=== PATIENT | female | born 1960 | race Caucasian/White ===

== ENCOUNTER 2016-04-28 22:19 | Emergency (ER) | payer OTHER, BC ==
[2016-04-28 22:32] VITALS: BP 139/85
[2016-04-28] MEDS ORDERED: Metoclopramide 10 MG/2 ML SDV IVPUSH ONE (22:44)
--- NOTE | 2016-04-28 22:44 | EDM.PDOC ---
ED HPI GI/ABDOMINAL - General Chief Complaint: Gastrointestinal Problem Stated Complaint: CHEMO PT VOMITING/DIARRHEA Time Seen by Provider: 04/28/16 22:43 Source of Information: Reports: Patient History Limitations: Reports: No limitations - History of Present Illness INITIAL COMMENTS - FREE TEXT/NARRATIVE: 56-year-old female presents to the ED in the accompaniment of her . They report they referred her for the weekend. They were eating out. They felt they both had the same meal at a [place] restaurant except that she may have had a little bit of different form of shrimp dish. Approximately 1930 hours she started developing nausea followed by severe diarrhea. Just today she's vomited about 7 times of undigested food and diarrhea is large volume and watery. No blood noted in either emesis or diarrhea. Associated upper abdominal discomfort and mild cramps better since last emesis. History is complicated by the fact that she has multiple myeloma with the initial diagnosis June 2007. Had chemotherapy and then treated with stem cell transplant in 10 repeat stem cell transplant in 2011. Recurrence in his September 24October of this year and is on chemotherapy at this time. Last chemotherapy was approximately 3 weeks ago. She tolerated it very well. She feels chilled but has no fever. Previous abdominal surgery is cholecystectomy.patient did take 2 Compazine tablets at home but she felt she vomited them back up within about 5 minutes. Symptom Onset Date: 04/28/16 Symptom Onset Time: 19:30 Timing/Duration: Reports: Hour(s):, Sudden onset Location: other (generalized abdominal pain with associated cramping and pressure in epigastrium.) Quality: Reports: cramping, fullness Severity: severe Improves with: Reports: defecating, vomiting Context: Reports: bad/questionable food. 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) - Related Data Allergies/ADRs: Allergies Allergy/AdvReac Type Severity Reaction Status Date / Time ciprofloxacin [From Cipro] Allergy Arrhythmias Verified 05/26/15 20:11 ciprofloxacin HCl Allergy Arrhythmias Verified 05/26/15 20:11 [From Cipro] levofloxacin [From Levaquin] Allergy Arrhythmias Verified 04/28/16 22:34 Sulfa (Sulfonamide Allergy Rash Verified 04/28/16 22:34 Antibiotics) telithromycin [From Ketek] Allergy Anaphylactic Verified 04/28/16 22:34 Shock Home Meds: Home Meds Acyclovir 800 mg PO BID 05/26/15 [History] Cyanocobalamin (Vitamin B-12) [Vitamin B-12] 1,000 mcg INJECT ONETIME 05/26/15 [ History] Dexamethasone 8 mg PO ASDIRECTED 05/26/15 [History] Furosemide [Lasix] 40 mg PO DAILY PRN 05/26/15 [History] LORazepam 1 mg PO DAILY PRN 05/26/15 [History] Ondansetron HCl [Zofran] 8 mg PO DAILY PRN 05/26/15 [History] ALPRAZolam [Xanax] 1 mg PO DAILY 04/28/16 [History] Prochlorperazine Maleate [Compazine] 10 mg PO Q8H PRN 04/28/16 [History] Past Medical History Respiratory History: Reports: Asthma Other Oncologic History: multiple myloma initially diagnosed in 2007. Stem cell transplant 2009 and 2011. Recurrence in November of this year and has been on chemotherapy since that time.fairly chemotherapy is to be given once monthly and she is due for chemotherapy on this Friday every . - Past Surgical History GI Surgical History: Reports: Cholecystectomy Social & Family History - Tobacco Use Smoking Status *Q: Never Smoker - Recreational Drug Use Recreational Drug Use: No - Living Situation & Occupation Living situation: Reports: Occupation: disabled ED ROS GENERAL - Review of Systems Review Of Systems: See Below Constitutional: Reports: chills, malaise, weakness, fatigue, decreased appetite. Denies: weight loss HEENT: Reports: No symptoms Respiratory: Reports: no symptoms Cardiovascular: Reports: Dyspnea on exertion (on exertion at times.). Denies: Blood pressure problem Endocrine: Reports: fatigue GI/Abdominal: Reports: Abdominal pain (mostly in the epigastrium but does get some lower abdominal cramping pain as well with onset of this illness.), Diarrhea, Nausea, Vomiting. Denies: Hematemesis, Hematochezia : Reports: no symptoms Musculoskeletal: Reports: no symptoms Skin: Reports: no symptoms Neurological: Reports: dizziness ED EXAM, GI/ABD - Physical Exam Exam: See Below Exam Limited By: No limitations General Appearance: alert, WD/WN, moderate distress (vomiting when I walked in the room.) Eyes: bilateral: normal appearance (no jaundice) Throat/Mouth: Normal inspection, Normal lips, Normal teeth, Normal oropharynx Head: atraumatic, normocephalic Neck: normal inspection, supple, non-tender, full range of motion Respiratory/Chest: no respiratory distress, lungs clear, normal breath sounds, no accessory muscle use Cardiovascular: normal peripheral pulses, regular rate, rhythm, no edema, no gallop, no murmur GI/Abdominal: soft, no organomegaly, hyperactive bowel sounds, tenderness ( mostly in the epigastrium I think muscular due to vomiting.). No: hepatomegaly , splenomegaly Extremities: normal inspection, normal range of motion, non-tender, normal capillary refill, pedal edema Neurological: alert (mild edema around the ankles.), oriented, CN II-XII intact , normal cognition Psychiatric: normal affect, normal mood Skin Exam: Dry, Intact, Normal color, No rash, Cool Course - Vital Signs Last Recorded V/S: Last Vital Signs Temp 35.5 C 04/28/16 22:27 Pulse 97 04/28/16 22:27 Resp 16 04/28/16 22:27 BP 139/85 04/28/16 22:27 Pulse Ox 98 04/28/16 22:27 - Orders/Labs/Meds Orders: Active Orders 24 hr Category Date Time Status CULTURE STOOL + SHIGATOX [RM] Stat Lab 04/28/16 22:43 Uncollected WBC, STOOL [OP] Stat Lab 04/28/16 22:43 Uncollected Dextrose 5%-0.9% NaCl [Dextrose 5%-Normal Saline] 1,000 Med 04/28/16 22:45 Active ml IV ASDIRECTED Medication Orders Dextrose/Sodium Chloride (Dextrose 5%-Normal Saline) 1,000 mls @ 999 mls/hr IV ASDIRECTED ROQUE Last Admin: 04/28/16 23:11 Dose: 999 mls/hr Labs: Laboratory Tests 04/28/16 04/28/16 Range/Units 23:06 23:06 WBC 9.16 (3.98-10.04) K/mm3 RBC 5.07 (3.98-5.22) M/mm3 Hgb 14.2 (11.2-15.7) gm/L Hct 45.0 H (34.1-44.9) % MCV 88.8 (79.4-94.8) fl MCH 28.0 (25.6-32.2) pg MCHC 31.6 L (32.2-35.5) g/dl RDW Std Deviation 51.6 H (36.4-46.3) fL Plt Count 190 (182-369) K/mm3 MPV 9.3 L (9.4-12.3) fl Neutrophils % (Manual) 80 H (40-60) % Band Neutrophils % 0 (0-10) % Lymphocytes % (Manual) 9 L (20-40) % Atypical Lymphs % 0 % Monocytes % (Manual) 8 (2-10) % Eosinophils % (Manual) 3 (0.7-5.8) % Basophils % (Manual) 0 L (0.1-1.2) Toxic Granulation See note Platelet Estimate Adequate Plt Morphology Comment Normal RBC Morph Comment Normal Sodium 143 (136-145) mEq/L Potassium 3.8 (3.5-5.1) mEq/L Chloride 105 (98-107) mEq/L Carbon Dioxide 25 (21-32) mEq/L Anion Gap 16.8 H (5-15) BUN 12 (7-18) mg/dL Creatinine 0.7 (0.55-1.02) mg/dL Est Cr Clr Drug Dosing TNP Estimated GFR (MDRD) > 60 (>60) mL/min BUN/Creatinine Ratio 17.1 (14-18) Glucose 132 H (74-106) mg/dL Calcium 8.9 (8.5-10.1) mg/dL Total Bilirubin 0.3 (0.2-1.0) mg/dL AST 30 (15-37) U/L ALT 32 (14-59) U/L Alkaline Phosphatase 143 H (46-116) U/L C-Reactive Protein 3.1 H* (<1.0) mg/dL Total Protein 7.0 (6.4-8.2) g/dl Albumin 3.4 (3.4-5.0) g/dl Globulin 3.6 gm/dL Albumin/Globulin Ratio 0.9 L (1-2) Meds: Medications Generic Name Dose Route Start Last Admin Trade Name Ludy PRN Reason Stop Dose Admin Dextrose/Sodium Chloride 1,000 mls @ 999 mls/hr 04/28/16 22:45 04/28/16 23:11 Dextrose 5%-Normal Saline IV 999 mls/hr ASDIRECTED ROQUE Administration Discontinued Medications Generic Name Dose Route Start Last Admin Trade Name Ludy PRN Reason Stop Dose Admin Metoclopramide HCl 7.5 mg 04/28/16 22:44 04/28/16 23:07 Reglan IVPUSH 04/28/16 22:45 7.5 mg ONETIME ONE Administration - Radiology Interpretation Free Text/Narrative:: 56-year-old female presents to the ED with acute onset of nausea vomiting and diarrhea about 7:30 tonight. Started about the same time. Was eating out in 5 over the weekend. Possibility of foodborne illness exists with a toxin causing the antritis. Plan she has a history of multiple myeloma and therefore will have routine labs performed. IV will be D5 normal saline at open. Given Reglan 10 mg IV. At this time she feels she doesn't have much abdominal pain and doesn' t need any pain medication. If she Is to provide a stool sample while here we tested for white cells and culture. - Re-Assessments/Exams Free Text/Narrative Re-Assessment/Exam: 04/29/16 00:10 white count is back and is 9.16. Hemoglobin is 14.2 hematocrit 45.0. Platelet count is 190,000. Chemistry shows a sodium of 143 potassium of 3.8. Anion gap is mildly elevated at 16.8. Glucose 132 alkaline phosphatase days mildly elevated 143 CRP is 3.1. 04/29/16 00:39differential is back and shows 80% neutrophils no bands. She never was able to produce a stool sample while in the ED and therefore stool for culture and white cells will be canceled. Suspect strongly that current illness was but do to a foodborne toxin. She has Compazine tablets at home. Have advised her to take 10 mg at 4:00 this morning and again at 0930 hours this morning to prevent any further nausea vomiting. Clear fluid diet such as Gatorade Powerade until we know for sure it vomiting is stopped. Then to advance diet as tolerated with no dairy products or altitudes or grape juice until stools are formed back up. She will return to the hospital further vomiting occurs in spite of Compazine therapy at home. She is on Zofran ineffective in the past and also gives her quite a bad headache. Departure - Departure Time of Disposition: 00:36 Disposition: Home, Self-Care 01 Condition: fair Clinical Impression: Gastroenteritis Referrals: PCP,Unknown [Primary Care Provider] - Forms: ED Department Discharge Additional Instructions: evaluation in the emergency room tonight in regards to acute onset of nausea vomiting and diarrhea. Came on about the same time. No stools were produce labor in the emergency room. Lab work proved to be essentially normal with a total white count of 9.16 and hemoglobin of 14.2 platelets normal 190,000. Chemistry showed a little bit of volume depletion or dehydration. I am suspect that your current illness is foodborne in likely from a toxin eat within the last 12-24 hours.you're treated with a liter of IV fluids while in the ED and Reglan 10 mg IV to arrest nausea and vomiting. Treatment at home is to sit on Gatorade or Powerade ideally 5 or 6 ounces per hour for the next 12 hours until we know for sure that illnesses come to an end. Most toxin related illnesses better within 24 hours. Viral gastroenteritis vomiting usually is improved within 16-24 hours but the diarrhea can sometimes last a few more days. Suggest using your Compazine tablets 10 mg every 6 hours as needed for vomiting or nausea relief. I would suggest taking 2 tablets at 4:00 this morning and again at 09:30 hrs in the morning and then see what happens.clear fluid diet until no vomiting for 16 hours. When hungry advance to crackers. Then advanced to broth soup or turkey rice turkey noodle et cetera. Suggest no dairy products and no apple or grape juice until stools are formed back up. If vomiting occurs in spite of using Compazine return to the emergency room for further IV fluids and medication as needed. - My Orders Last 24 Hours: My Active Orders 04/28/16 22:43 CULTURE STOOL + SHIGATOX [RM] Stat WBC, STOOL [OP] Stat 04/28/16 22:45 Dextrose 5%-0.9% NaCl [Dextrose 5%-Normal Saline] 1,000 ml IV ASDIRECTED - Assessment/Plan Last 24 Hours: My Active Orders 04/28/16 22:43 CULTURE STOOL + SHIGATOX [RM] Stat WBC, STOOL [OP] Stat 04/28/16 22:45 Dextrose 5%-0.9% NaCl [Dextrose 5%-Normal Saline] 1,000 ml IV ASDIRECTED
[2016-04-28] MEDS ORDERED: Dextrose 5%-0.9% NaCl 1,000 ML IV SCH (22:45)
== END 2016-04-29 00:50 | disposition home or self-care (01) ==
LOC: JD.ED 22:19
DX: K52.9 Noninfective gastroenteritis and colitis, unspecified (principal); J45.909 Unspecified asthma, uncomplicated; Z88.1 Allergy status to other antibiotic agents; Z88.2 Allergy status to sulfonamides; Z90.49 Acquired absence of other specified parts of digestive tract
CPT/HCPCS: 36415; 80053; 85025; 86140; 96361; 96374; 99284; J2765; J7042

== ENCOUNTER 2016-06-30 10:25 | Emergency (ER) | payer OTHER, BC ==
[2016-06-30 10:41] VITALS: BP 124/85
--- NOTE | 2016-06-30 10:41 | EDM.PDOC ---
ED HPI GENERAL MEDICAL PROBLEM - General Chief Complaint: ENT Problem Stated Complaint: FEVER CHILLS PT CHEMO SORE THROAT Time Seen by Provider: 06/30/16 10:41 - History of Present Illness INITIAL COMMENTS - FREE TEXT/NARRATIVE: 56-year-old female presents emergency room with sore throat and congestion. She had chemotherapy on . Patient is treated for multiple myeloma she has had this for 8 years. She's on multiple rounds of chemotherapy she's had 2 stem cell transplants. It is unclear if she is a candidate for further stem cell transplants. This patient was thought to have active disease again this last October and has been on chemotherapy she generally tolerates this fairly well. After receiving her chemotherapy she was seen in the clinic for sore throat congestion was started on Augmentin. Flu swab at that time was unremarkable. Throat Pain Score (Numeric/FACES): 8 - Related Data Allergies Allergy/AdvReac Type Severity Reaction Status Date / Time ciprofloxacin [From Cipro] Allergy Arrhythmias Verified 05/26/15 20:11 ciprofloxacin HCl Allergy Arrhythmias Verified 05/26/15 20:11 [From Cipro] levofloxacin [From Levaquin] Allergy Arrhythmias Verified 04/28/16 22:34 Sulfa (Sulfonamide Allergy Rash Verified 04/28/16 22:34 Antibiotics) telithromycin [From Ketek] Allergy Anaphylactic Verified 04/28/16 22:34 Shock Home Meds: Home Meds Acyclovir 800 mg PO BID 05/26/15 [History] Cyanocobalamin (Vitamin B-12) [Vitamin B-12] 1,000 mcg INJECT Q30D 05/26/15 [ History] Dexamethasone 8 mg PO ASDIRECTED 05/26/15 [History] Furosemide [Lasix] 40 mg PO DAILY PRN 05/26/15 [History] LORazepam 1 mg PO DAILY PRN 05/26/15 [History] Ondansetron HCl [Zofran] 8 mg PO DAILY PRN 05/26/15 [History] Prochlorperazine Maleate [Compazine] 10 mg PO Q8H PRN 04/28/16 [History] Past Medical History HEENT History: Reports: Impaired vision Cardiovascular History: Reports: RI Other Cardiovascular History: Patient states she was told she's had an RI in the past secondary to chemotherapy Respiratory History: Reports: Asthma Gastrointestinal History: Reports: Diverticulosis 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 Stem cell transplant 2009 and 2011. Recurrence in November of this year and has been on chemotherapy since that time.fairly chemotherapy is to be given once monthly and she is due for chemotherapy on this Friday every . - Past Surgical History GI Surgical History: Reports: Cholecystectomy Social & Family History - Family History Family Medical History: Noncontributory - Tobacco Use Smoking Status *Q: Never Smoker Second Hand Smoke Exposure: No - Caffeine Use Caffeine Use: Reports: Coffee, Soda - Recreational Drug Use Recreational Drug Use: No - Living Situation & Occupation Living situation: Reports: Occupation: disabled ED ROS GENERAL - Review of Systems Review Of Systems: See Below Constitutional: Reports: fever, chills HEENT: Reports: Sinus problem, Throat pain, Other (Tightness pressure and congestion) Respiratory: Reports: Cough. Denies: Sputum Cardiovascular: Reports: No symptoms Endocrine: Reports: no symptoms GI/Abdominal: Reports: No symptoms : Reports: no symptoms Skin: Reports: no symptoms Neurological: Reports: No Symptoms Hematologic/Lymphatic: Reports: no symptoms ED EXAM, GENERAL - Physical Exam Exam: See Below Exam Limited By: No limitations General Appearance: alert, no apparent distress Eye Exam: bilateral eye: normal inspection Ears: normal external exam, normal canal, hearing grossly normal, normal TMs Nose: normal inspection, other (Sinus tenderness with percussion worse left maxillary sinus minimal right maxillary sinus minimal frontal sinus discomfort) Throat/Mouth: Normal inspection, Normal lips, Normal teeth, Normal gums, Normal oropharynx, Normal voice, No airway compromise Head: atraumatic, normocephalic Neck: normal inspection, supple, non-tender, full range of motion. No: lymphadenopathy (L), lymphadenopathy (R) Respiratory/Chest: no respiratory distress, lungs clear, normal breath sounds Cardiovascular: regular rate, rhythm, no edema, no murmur Course - Vital Signs Last Recorded V/S: Last Vital Signs Temp 35.6 C 06/30/16 10:39 Pulse 96 06/30/16 10:39 Resp 20 06/30/16 10:39 BP 124/85 06/30/16 10:39 Pulse Ox 95 06/30/16 10:39 - Orders/Labs/Meds Orders: Active Orders 24 hr Category Date Time Status Chest 2V [CR] Stat Exams 06/30/16 11:03 Taken Labs: Laboratory Tests 06/30/16 06/30/16 Range/Units 11:19 11:19 WBC 9.69 (3.98-10.04) K/mm3 RBC 5.02 (3.98-5.22) M/mm3 Hgb 14.1 (11.2-15.7) gm/L Hct 44.4 (34.1-44.9) % MCV 88.4 (79.4-94.8) fl MCH 28.1 (25.6-32.2) pg MCHC 31.8 L (32.2-35.5) g/dl RDW Std Deviation 49.3 H (36.4-46.3) fL Plt Count 137 L (182-369) K/mm3 MPV 8.5 L (9.4-12.3) fl Neutrophils % (Manual) 80 H (40-60) % Band Neutrophils % 0 (0-10) % Lymphocytes % (Manual) 14 L (20-40) % Atypical Lymphs % 0 % Monocytes % (Manual) 4 (2-10) % Eosinophils % (Manual) 2 (0.7-5.8) % Basophils % (Manual) 0 L (0.1-1.2) Platelet Estimate Adequate RBC Morph Comment Normal Sodium 141 (136-145) mEq/L Potassium 3.9 (3.5-5.1) mEq/L Chloride 103 (98-107) mEq/L Carbon Dioxide 26 (21-32) mEq/L Anion Gap 15.9 H (5-15) BUN 7 (7-18) mg/dL Creatinine 0.7 (0.55-1.02) mg/dL Est Cr Clr Drug Dosing TNP Estimated GFR (MDRD) > 60 (>60) mL/min BUN/Creatinine Ratio 10.0 L (14-18) Glucose 103 (74-106) mg/dL Calcium 9.0 (8.5-10.1) mg/dL Total Bilirubin 0.5 (0.2-1.0) mg/dL AST 22 (15-37) U/L ALT 30 (14-59) U/L Alkaline Phosphatase 159 H (46-116) U/L Total Protein 6.9 (6.4-8.2) g/dl Albumin 3.3 L (3.4-5.0) g/dl Globulin 3.6 gm/dL Albumin/Globulin Ratio 0.9 L (1-2) - Re-Assessments/Exams Free Text/Narrative Re-Assessment/Exam: 06/30/16 12:20 Chest x-ray poor respiratory effort other bella no acute cardiopulmonary changes. Laboratory evaluation is unrevealing mild elevation in her segs no bands. The patient received a dose of Daratumumab, chemotherapeutic, for her multiple myeloma on . Later was seen in the clinic and started on Augmentin for a URI at this point I believe her URI is a sinus infection. Augmentin is very appropriate choice. 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 The patient will continue the Augmentin and followup with oncology early this week. Departure - Departure Time of Disposition: 12:23 Disposition: Home, Self-Care 01 Clinical Impression: Maxillary sinusitis, acute, Multiple myeloma in relapse Referrals: Margarita Styles MD [Primary Care Provider] - Forms: ED Department Discharge Additional Instructions: Return to the emergency room with any questions or problems. Followup with oncology on Friday or Friday. Continue taking the Augmentin as previously started - My Orders Last 24 Hours: My Active Orders 06/30/16 11:03 Chest 2V [CR] Stat - Assessment/Plan Last 24 Hours: My Active Orders 06/30/16 11:03 Chest 2V [CR] Stat
--- NOTE | 2016-07-01 10:34 | CR ---
Chest: Two views of the chest were obtained. Comparison: Previous chest x-ray of 05/26/15. Heart size and mediastinum are normal. Lungs are clear. Mild degenerative spurring is noted within the spine. Impression: 1. Nothing acute is identified on two-view chest x-ray. Diagnostic code #2
== END 2016-06-30 12:43 | disposition home or self-care (01) ==
LOC: JD.ED 10:25
DX: J01.00 Acute maxillary sinusitis, unspecified (principal); C90.02 Multiple myeloma in relapse; I25.2 Old myocardial infarction; J45.909 Unspecified asthma, uncomplicated; Z88.1 Allergy status to other antibiotic agents; Z88.2 Allergy status to sulfonamides; Z79.899 Other long term (current) drug therapy; Z90.49 Acquired absence of other specified parts of digestive tract
CPT/HCPCS: 36415; 71020; 71020-26; 80053; 85025; 99282; 99283; 99284

== ENCOUNTER 2016-07-02 13:29 | Emergency (ER) | payer OTHER, BC ==
[2016-07-02] MEDS ORDERED: Sodium Chloride 0.9% 10 ML Syringe FLUSH PRN ×2 (13:50→14:12)
[2016-07-02] MEDS ORDERED: Sodium Chloride 0.9% 1,000 ML IV ONE ×2 (13:53→15:14)
--- NOTE | 2016-07-02 14:10 | EDM.PDOC ---
ED HPI GENERAL MEDICAL PROBLEM - General Chief Complaint: Respiratory Problem Stated Complaint: SOB/COUGH/FEVER Time Seen by Provider: 07/02/16 13:40 Source of Information: Reports: Patient, Provider History Limitations: Reports: No limitations - History of Present Illness INITIAL COMMENTS - FREE TEXT/NARRATIVE: 56-year-old female presents for evaluation and treatment of fevers, chills, shortness of breath and cough. Patient reports that she's been ill since . She was seen by her primary care provider on . Tested negative for influenza. She was started on Augmentin for a sinus infection. She states on Friday she developed a fever of 101.8. She was seen at the ER. Chest x -rays was unremarkable. She was encouraged to continue on her Augmentin. Patient saw her oncologist today. She was found to be tachycardic, tachypneic and diaphoretic at the office there for the provider sent her over for admission for likely sepsis. Patient is currently complaining of a productive cough, chest pain, sinus pain, fevers, chills, wheezing, nausea and shortness of breath. Reports the wheezing and shortness of breath started today. She denies any abdominal pain and vomiting. Patient's past medical history of multiple myeloma, currently in remission. She currently receives infusions of IVIG. Last infusion was last week. She was scheduled to get one this week. Middle Back Pain Score (Numeric/FACES): 5 - Related Data Allergies Allergy/AdvReac Type Severity Reaction Status Date / Time ciprofloxacin [From Cipro] Allergy Arrhythmias Verified 05/26/15 20:11 ciprofloxacin HCl Allergy Arrhythmias Verified 05/26/15 20:11 [From Cipro] levofloxacin [From Levaquin] Allergy Arrhythmias Verified 04/28/16 22:34 Sulfa (Sulfonamide Allergy Rash Verified 04/28/16 22:34 Antibiotics) telithromycin [From Ketek] Allergy Anaphylactic Verified 04/28/16 22:34 Shock Home Meds: Home Meds Acyclovir 800 mg PO BID 05/26/15 [History] Cyanocobalamin (Vitamin B-12) [Vitamin B-12] 1,000 mcg INJECT Q30D 05/26/15 [ History] Dexamethasone 8 mg PO ASDIRECTED 05/26/15 [History] Furosemide [Lasix] 40 mg PO DAILY PRN 05/26/15 [History] LORazepam 1 mg PO DAILY PRN 05/26/15 [History] Ondansetron HCl [Zofran] 8 mg PO DAILY PRN 05/26/15 [History] Prochlorperazine Maleate [Compazine] 10 mg PO Q8H PRN 04/28/16 [History] Amoxicillin/Clavulanate K [Augmentin 875 MG/125 MG] 1 tab PO BID 07/02/16 [ History] Daratumumab [Darzalex] 0 mg IV ASDIRECTED 07/02/16 [History] Past Medical History HEENT History: Reports: Impaired vision Cardiovascular History: Reports: LA Other Cardiovascular History: Patient states she was told she's had an LA in the past secondary to chemotherapy Respiratory History: Reports: Asthma Gastrointestinal History: Reports: Diverticulosis 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 Stem cell transplant 2009 and 2011. Recurrence in November of this year and has been on chemotherapy since that time.fairly chemotherapy is to be given once monthly and she is due for chemotherapy on this Friday every . - Past Surgical History GI Surgical History: Reports: Cholecystectomy Female Surgical History: Reports: section Social & Family History - Family History Family Medical History: Noncontributory - Tobacco Use Smoking Status *Q: Former Smoker Used Tobacco, but Quit: Yes Month Tobacco Last Used: 20 yrs ago Second Hand Smoke Exposure: No - Caffeine Use Caffeine Use: Reports: Soda - Recreational Drug Use Recreational Drug Use: No - Living Situation & Occupation Living situation: Reports: Occupation: disabled ED ROS GENERAL - Review of Systems Review Of Systems: See Below Constitutional: Reports: fever, chills HEENT: Reports: Sinus problem Respiratory: Reports: Shortness of Breath, Wheezing, Sputum Cardiovascular: Reports: Chest pain GI/Abdominal: Reports: Nausea. Denies: Abdominal pain, Vomiting ED EXAM, GENERAL - Physical Exam Exam: See Below Exam Limited By: No limitations General Appearance: alert, WD/WN, no apparent distress, obese Ears: normal external exam Throat/Mouth: Normal inspection, Normal lips, Normal voice, No airway compromise Respiratory/Chest: rhonchi, wheezing, splinting, other (tachypnic ) Cardiovascular: normal peripheral pulses, no murmur, tachycardia Neurological: alert, oriented, normal cognition Psychiatric: normal affect, normal mood Skin Exam: Diaphoretic EKG INTERPRETATION EKG Date: 07/02/16 Time: 14:00 Rhythm: NSR Rate (beats/min): 108 Presho: normal P-wave: present QRS: normal ST-T: normal QT: normal Comparison: NA - no prior EKG EKG Interpretation Comments: Sinus tachycardia at [address] changes. REviewd by myself and Dr. Manzano. Course - Vital Signs Last Recorded V/S: Last Vital Signs Temp 36.6 C 07/02/16 13:43 Pulse 120 H 07/02/16 15:15 Resp 24 H 07/02/16 15:15 BP 155/74 H 07/02/16 15:15 Pulse Ox 96 07/02/16 15:15 - Orders/Labs/Meds Orders: Active Orders 24 hr Category Date Time Status Cardiac Monitoring [RC] . DIRECTED Care 07/02/16 13:53 Active EKG Documentation Completion [RC] STAT Care 07/02/16 13:50 Active Oxygen Therapy [RC] ASDIRECTED Care 07/02/16 13:53 Active Peripheral IV Care [RC] . DIRECTED Care 07/02/16 13:50 Active RT Aerosol Therapy [RC] ASDIRECTED Care 07/02/16 14:55 Active CULTURE BLOOD [BC] Stat Lab 07/02/16 14:10 Received CULTURE BLOOD [BC] Stat Lab 07/02/16 14:20 Received CULTURE URINE [RM] Stat Lab 07/02/16 15:35 Received Sodium Chloride 0.9% [Normal Saline] 1,000 ml Med 07/02/16 15:14 Active IV ONETIME Sodium Chloride 0.9% [Normal Saline] 100 ml Med 07/02/16 14:15 Active IV ASDIRECTED Sodium Chloride 0.9% [Saline Flush] Med 07/02/16 13:50 Active 10 ml FLUSH ASDIRECTED PRN Sodium Chloride 0.9% [Saline Flush] Med 07/02/16 14:12 Active 10 ml FLUSH ONETIME PRN Blood Culture x2 Reflex Set [OM.PC] Stat Oth 07/02/16 13:50 Ordered Peripheral IV Insertion Adult [OM.PC] Routine Oth 07/02/16 13:50 Ordered Medication Orders Sodium Chloride (Normal Saline) 100 mls @ 65 mls/hr IV ASDIRECTED ROQUE Last Admin: 07/02/16 14:36 Dose: 65 mls/hr Sodium Chloride (Normal Saline) 1,000 mls @ 100 mls/hr IV ONETIME ONE Stop: 07/03/16 01:13 Sodium Chloride (Saline Flush) 10 ml FLUSH ASDIRECTED PRN PRN Reason: Keep Vein Open Last Admin: 07/02/16 14:44 Dose: 10 ml Sodium Chloride (Saline Flush) 10 ml FLUSH ONETIME PRN PRN Reason: IV FLUSH Last Admin: 07/02/16 14:36 Dose: 10 ml Labs: Laboratory Tests 07/02/16 07/02/16 07/02/16 Range/Units 14:10 14:10 14:10 WBC (3.98-10.04) K/mm3 RBC (3.98-5.22) M/mm3 Hgb (11.2-15.7) gm/L Hct (34.1-44.9) % MCV (79.4-94.8) fl MCH (25.6-32.2) pg MCHC (32.2-35.5) g/dl RDW Std Deviation (36.4-46.3) fL Plt Count (182-369) K/mm3 MPV (9.4-12.3) fl Neutrophils % (Manual) (40-60) % Band Neutrophils % (0-10) % Lymphocytes % (Manual) (20-40) % Atypical Lymphs % % Monocytes % (Manual) (2-10) % Eosinophils % (Manual) (0.7-5.8) % Basophils % (Manual) (0.1-1.2) Platelet Estimate RBC Morph Comment PT (8.0-13.0) SECONDS INR APTT (22-36) SECONDS D-Dimer, Quantitative 0.81 H (0.19-0.59) mg/L Sodium 136 (136-145) mEq/L Potassium 3.4 L (3.5-5.1) mEq/L Chloride 99 (98-107) mEq/L Carbon Dioxide 26 (21-32) mEq/L Anion Gap 14.4 (5-15) BUN 6 L (7-18) mg/dL Creatinine 0.9 (0.55-1.02) mg/dL Est Cr Clr Drug Dosing 53.30 mL/min Estimated GFR (MDRD) > 60 (>60) mL/min BUN/Creatinine Ratio 6.7 L (14-18) Glucose 129 H (74-106) mg/dL Lactic Acid 1.3 (0.4-2.0) mmol/L Calcium 9.0 (8.5-10.1) mg/dL Total Bilirubin 0.7 (0.2-1.0) mg/dL AST 29 (15-37) U/L ALT 38 (14-59) U/L Alkaline Phosphatase 196 H (46-116) U/L C-Reactive Protein 46.9 H* (<1.0) mg/dL B-Natriuretic Peptide (0-100) pg/mL Total Protein 7.2 (6.4-8.2) g/dl Albumin 2.9 L (3.4-5.0) g/dl Globulin 4.3 gm/dL Albumin/Globulin Ratio 0.7 L (1-2) Urine Color (Yellow) Urine Appearance (Clear) Urine pH (5.0-8.0) Ur Specific [place] (1.005-1.030) Urine Protein (Negative) Urine Glucose (UA) (Negative) Urine Ketones (Negative) Urine Occult Blood (Negative) Urine Nitrite (Negative) Urine Bilirubin (Negative) Urine Urobilinogen (0.2-1.0) Ur Leukocyte Esterase (Negative) Urine RBC (0-5) /hpf Urine WBC (0-5) /hpf Ur Epithelial Cells Ur Squamous Epith Cells (0-5) /hpf Urine Bacteria (FEW) /hpf Urine Mucus (FEW) /hpf Mycoplasma pneumon IgM (NEGATIVE) 07/02/16 07/02/16 07/02/16 Range/Units 14:10 14:10 14:10 WBC 10.60 H (3.98-10.04) K/mm3 RBC 4.79 (3.98-5.22) M/mm3 Hgb 13.5 (11.2-15.7) gm/L Hct 42.6 (34.1-44.9) % MCV 88.9 (79.4-94.8) fl MCH 28.2 (25.6-32.2) pg MCHC 31.7 L (32.2-35.5) g/dl RDW Std Deviation 51.5 H (36.4-46.3) fL Plt Count 147 L (182-369) K/mm3 MPV 8.9 L (9.4-12.3) fl Neutrophils % (Manual) 79 H (40-60) % Band Neutrophils % 3 (0-10) % Lymphocytes % (Manual) 9 L (20-40) % Atypical Lymphs % 0 % Monocytes % (Manual) 8 (2-10) % Eosinophils % (Manual) 1 (0.7-5.8) % Basophils % (Manual) 0 L (0.1-1.2) Platelet Estimate Adequate RBC Morph Comment Normal PT (8.0-13.0) SECONDS INR APTT 32 (22-36) SECONDS D-Dimer, Quantitative (0.19-0.59) mg/L Sodium (136-145) mEq/L Potassium (3.5-5.1) mEq/L Chloride (98-107) mEq/L Carbon Dioxide (21-32) mEq/L Anion Gap (5-15) BUN (7-18) mg/dL Creatinine (0.55-1.02) mg/dL Est Cr Clr Drug Dosing mL/min Estimated GFR (MDRD) (>60) mL/min BUN/Creatinine Ratio (14-18) Glucose (74-106) mg/dL Lactic Acid (0.4-2.0) mmol/L Calcium (8.5-10.1) mg/dL Total Bilirubin (0.2-1.0) mg/dL AST (15-37) U/L ALT (14-59) U/L Alkaline Phosphatase (46-116) U/L C-Reactive Protein (<1.0) mg/dL B-Natriuretic Peptide 15 (0-100) pg/mL Total Protein (6.4-8.2) g/dl Albumin (3.4-5.0) g/dl Globulin gm/dL Albumin/Globulin Ratio (1-2) Urine Color (Yellow) Urine Appearance (Clear) Urine pH (5.0-8.0) Ur Specific [place] (1.005-1.030) Urine Protein (Negative) Urine Glucose (UA) (Negative) Urine Ketones (Negative) Urine Occult Blood (Negative) Urine Nitrite (Negative) Urine Bilirubin (Negative) Urine Urobilinogen (0.2-1.0) Ur Leukocyte Esterase (Negative) Urine RBC (0-5) /hpf Urine WBC (0-5) /hpf Ur Epithelial Cells Ur Squamous Epith Cells (0-5) /hpf Urine Bacteria (FEW) /hpf Urine Mucus (FEW) /hpf Mycoplasma pneumon IgM (NEGATIVE) 07/02/16 07/02/16 07/02/16 Range/Units 14:10 14:10 15:35 WBC (3.98-10.04) K/mm3 RBC (3.98-5.22) M/mm3 Hgb (11.2-15.7) gm/L Hct (34.1-44.9) % MCV (79.4-94.8) fl MCH (25.6-32.2) pg MCHC (32.2-35.5) g/dl RDW Std Deviation (36.4-46.3) fL Plt Count (182-369) K/mm3 MPV (9.4-12.3) fl Neutrophils % (Manual) (40-60) % Band Neutrophils % (0-10) % Lymphocytes % (Manual) (20-40) % Atypical Lymphs % % Monocytes % (Manual) (2-10) % Eosinophils % (Manual) (0.7-5.8) % Basophils % (Manual) (0.1-1.2) Platelet Estimate RBC Morph Comment PT 11.3 (8.0-13.0) SECONDS INR 1.03 APTT (22-36) SECONDS D-Dimer, Quantitative (0.19-0.59) mg/L Sodium (136-145) mEq/L Potassium (3.5-5.1) mEq/L Chloride (98-107) mEq/L Carbon Dioxide (21-32) mEq/L Anion Gap (5-15) BUN (7-18) mg/dL Creatinine (0.55-1.02) mg/dL Est Cr Clr Drug Dosing mL/min Estimated GFR (MDRD) (>60) mL/min BUN/Creatinine Ratio (14-18) Glucose (74-106) mg/dL Lactic Acid (0.4-2.0) mmol/L Calcium (8.5-10.1) mg/dL Total Bilirubin (0.2-1.0) mg/dL AST (15-37) U/L ALT (14-59) U/L Alkaline Phosphatase (46-116) U/L C-Reactive Protein (<1.0) mg/dL B-Natriuretic Peptide (0-100) pg/mL Total Protein (6.4-8.2) g/dl Albumin (3.4-5.0) g/dl Globulin gm/dL Albumin/Globulin Ratio (1-2) Urine Color Yellow (Yellow) Urine Appearance Slt cloudy H (Clear) Urine pH 7.0 (5.0-8.0) Ur Specific [place] 1.015 (1.005-1.030) Urine Protein 2+ H (Negative) Urine Glucose (UA) Negative (Negative) Urine Ketones Trace H (Negative) Urine Occult Blood 3+ H (Negative) Urine Nitrite Negative (Negative) Urine Bilirubin Negative (Negative) Urine Urobilinogen 0.2 (0.2-1.0) Ur Leukocyte Esterase Negative (Negative) Urine RBC 5-10 H (0-5) /hpf Urine WBC 0-5 (0-5) /hpf Ur Epithelial Cells Not Reportable Ur Squamous Epith Cells 10-20 H (0-5) /hpf Urine Bacteria Few (FEW) /hpf Urine Mucus Not seen (FEW) /hpf Mycoplasma pneumon IgM Negative (NEGATIVE) Meds: Medications Generic Name Dose Route Start Last Admin Trade Name Freq PRN Reason Stop Dose Admin Sodium Chloride 100 mls @ 65 mls/hr 07/02/16 14:15 07/02/16 14:36 Normal Saline IV 65 mls/hr ASDIRECTED ROQUE Administration Sodium Chloride 1,000 mls @ 100 mls/hr 07/02/16 15:14 Normal Saline IV 07/03/16 01:13 ONETIME ONE Sodium Chloride 10 ml 07/02/16 13:50 07/02/16 14:44 Saline Flush FLUSH 10 ml ASDIRECTED PRN Administration Keep Vein Open Sodium Chloride 10 ml 07/02/16 14:12 07/02/16 14:36 Saline Flush FLUSH 10 ml ONETIME PRN Administration IV FLUSH Discontinued Medications Generic Name Dose Route Start Last Admin Trade Name Freq PRN Reason Stop Dose Admin Albuterol 2.5 mg 07/02/16 14:55 07/02/16 15:05 Proventil Neb Soln NEB 07/02/16 14:56 2.5 mg ONETIME ONE Administration Sodium Chloride 1,000 mls @ 999 mls/hr 07/02/16 13:53 07/02/16 14:44 Normal Saline IV 07/02/16 14:53 999 mls/hr ONETIME ONE Administration Piperacillin Sod/Tazobactam 100 mls @ 200 mls/hr 07/02/16 14:44 07/02/16 14: 53 Sod 4.5 gm/ Sodium Chloride IV 07/02/16 15:13 200 mls/hr ONETIME ONE Administration Iopamidol 100 ml 07/02/16 14:12 07/02/16 14:36 Isovue-370 (76%) IVPUSH 07/02/16 14:13 100 ml ONETIME ONE Administration - Radiology Interpretation Free Text/Narrative:: CT pulmonary angiogram impression per Dr. Bermudez: Impression: 1. Parenchymal density within the left base either due to lung mass or pneumonia. Recommend treatment as a pneumonia and follow-up noncontrast chest CT in 4 weeks after patient completes clinical therapy to make sure findings resolve. 2. No findings of pulmonary embolism. - Re-Assessments/Exams Free Text/Narrative Re-Assessment/Exam: 07/02/16 15:52 Labs returned. WBC is 10.60 with 3% bands. HGb is 13.5 and plts are 147 sodium is 136, potassium is 3.4 and chloride 99. Anion gap is 14.4. Glucose is 129 lactic acid is 1.3 CRP is elevated at 46.9 d-dimer is midley elevated at 0.81 BNP is normal at 15 PT is 11.3, INR is 1.03 PTTs is 32 Awaiting . Hospital is on diversion. Patient elects to go to [facility]. No complaints of pain. Patient resting comfortably. Awaiting [facility] to return my phone call. 07/02/16 16:[address] Kennedy, hospitalist at [facility] in [place]. Accepted the patient. Patient will be a direct admission to Dr. Kennedy. Departure - Departure Time of Disposition: 16:22 Disposition: DC/Tfer to Acute Hospital 02 Condition: serious Clinical Impression: Pneumonia, Hypoxemia - Discharge Information Forms: ED Department Discharge Additional Instructions: Patient to be transferred by ground ambulance to [facility] in [place]. Dr. Vasa accepting. - My Orders Last 24 Hours: My Active Orders 07/02/16 13:50 EKG Documentation Completion [RC] STAT Peripheral IV Care [RC] . DIRECTED Sodium Chloride 0.9% [Saline Flush] 10 ml FLUSH ASDIRECTED PRN Blood Culture x2 Reflex Set [OM.PC] Stat Peripheral IV Insertion Adult [OM.PC] Routine 07/02/16 13:53 Cardiac Monitoring [RC] . DIRECTED Oxygen Therapy [RC] ASDIRECTED 07/02/16 14:10 CULTURE BLOOD [BC] Stat 07/02/16 14:12 Sodium Chloride 0.9% [Saline Flush] 10 ml FLUSH ONETIME PRN 07/02/16 14:15 Sodium Chloride 0.9% [Normal Saline] 100 ml IV ASDIRECTED 07/02/16 14:20 CULTURE BLOOD [BC] Stat 07/02/16 14:55 RT Aerosol Therapy [RC] ASDIRECTED 07/02/16 15:14 Sodium Chloride 0.9% [Normal Saline] 1,000 ml IV ONETIME 07/02/16 15:35 CULTURE URINE [RM] Stat - Assessment/Plan Last 24 Hours: My Active Orders 07/02/16 13:50 EKG Documentation Completion [RC] STAT Peripheral IV Care [RC] . DIRECTED Sodium Chloride 0.9% [Saline Flush] 10 ml FLUSH ASDIRECTED PRN Blood Culture x2 Reflex Set [OM.PC] Stat Peripheral IV Insertion Adult [OM.PC] Routine 07/02/16 13:53 Cardiac Monitoring [RC] . DIRECTED Oxygen Therapy [RC] ASDIRECTED 07/02/16 14:10 CULTURE BLOOD [BC] Stat 07/02/16 14:12 Sodium Chloride 0.9% [Saline Flush] 10 ml FLUSH ONETIME PRN 07/02/16 14:15 Sodium Chloride 0.9% [Normal Saline] 100 ml IV ASDIRECTED 07/02/16 14:20 CULTURE BLOOD [BC] Stat 07/02/16 14:55 RT Aerosol Therapy [RC] ASDIRECTED 07/02/16 15:14 Sodium Chloride 0.9% [Normal Saline] 1,000 ml IV ONETIME 07/02/16 15:35 CULTURE URINE [RM] Stat
[2016-07-02] MEDS ORDERED: Iopamidol 755 Mg/ML 100 ML Bottle IVPUSH ONE (14:12)
[2016-07-02] MEDS ORDERED: Sodium Chloride 0.9% 100 ML IV SCH (14:15)
[2016-07-02] MEDS ORDERED: Piperacillin/Tazobactam 4.5 GM in Sodium Chloride 0.9% 100 ML IV ONE (14:44)
[2016-07-02] MEDS ORDERED: Albuterol 0.083% 2.5 MG/3 ML Neb Soln NEB ONE (14:55)
--- NOTE | 2016-07-02 15:47 | CT ---
CT chest Technique: Multiple axial sections of the chest were obtained. Intravenous contrast was utilized. Study has been performed as a pulmonary angiogram protocol. Findings: Pulmonary arteries are moderately well-opacified. No filling defects are identified to indicate pulmonary embolism. Small scattered mediastinal lymph nodes are seen which are felt to be within normal limits. Mild coronary artery calcification is seen. No pericardial thickening is seen. Small portion of the visualized upper abdominal structures are within normal limits. Focal parenchymal density is noted within the left lung base. Uncertain if this represents mass or pneumonia. Lungs otherwise are clear. Impression: 1. Parenchymal density within the left base either due to lung mass or pneumonia. Recommend treatment as a pneumonia and follow-up noncontrast chest CT in 4 weeks after patient completes clinical therapy to make sure findings resolve. 2. No findings of pulmonary embolism. Diagnostic code #9
[2016-07-02 18:40] VITALS: BP 144/74
== END 2016-07-02 18:15 ==
LOC: JD.ED 13:29
DX: J18.9 Pneumonia, unspecified organism (principal); R09.02 Hypoxemia; I25.2 Old myocardial infarction; Z90.49 Acquired absence of other specified parts of digestive tract; Z98.890 Other specified postprocedural states; Z87.891 Personal history of nicotine dependence; Z88.1 Allergy status to other antibiotic agents; Z88.2 Allergy status to sulfonamides; Z79.899 Other long term (current) drug therapy
CPT/HCPCS: 36415; 71275; 80053; 81001; 83605; 83880; 85025; 85379; 85610; 85730; 86140; 86738; 87040; 87086; 93005; 94664; 96361; 96365; 99285; J2543; J7030; J7040; J7050; Q9967; 99284

== ENCOUNTER 2016-08-26 09:42 | Day surgery (SDC) | payer OTHER, BC ==
[~2016-08-26 09:42] MED LIST: Albuterol/Ipratropium 3.0-0.5 MG/3 ML Neb Soln NEB PRN; Lactated Ringers 1,000 ML IV SCH; Lidocaine 1%/Sod Bicarbonate in NS 8.4% 1 ML Syringe IV PRN; Lidocaine 1%/Sod Bicarbonate in NS 8.4% 1 ML Syringe PRN; Sodium Chloride 0.9% 10 ML Syringe FLUSH PRN
--- NOTE | 2016-08-26 10:20 | PCM.PREANE ---
Preanesthetic Assessment - Anesthesia/Transfusion/Family Hx Anesthesia History: Prior Anesthesia Without Reaction Family History of Anesthesia Reaction: No Transfusion History: Prior Transfusion Without Reaction - Review of Systems General: No Symptoms Pulmonary: No Symptoms Cardiovascular: Dyspnea on Exertion Gastrointestinal: No symptoms Neurological: Numbness (feet) Other: Reports: None - Physical Assessment NPO Status Date: 08/25/16 NPO Status Time: 00:00 Pulse: 88 O2 Sat by Pulse Oximetry: 92 Respiratory Rate: 16 Blood Pressure: 144/59 Temperature: 36.4 C Height: 1.55 m Weight: 131.542 kg ASA Class: 2 Mental Status: Alert & Oriented x3 Airway Class: Mallampati = 2 Dentition: Reports: Normal Dentition Thyro-Mental Finger Breadths: 2 Mouth Opening Finger Breadths: 3 ROM/Head Extension: Full Lungs: Clear to auscultation, Normal respiratory effort Cardiovascular: Regular Rate, Regular Rhythm, No Murmurs - Lab Values: on chart - Allergies Allergies/Adverse Reactions: Allergies Allergy/AdvReac Type Severity Reaction Status Date / Time ciprofloxacin [From Cipro] Allergy Arrhythmias Verified 08/23/16 12:40 ciprofloxacin HCl Allergy Arrhythmias Verified 08/23/16 12:40 [From Cipro] levofloxacin [From Levaquin] Allergy Arrhythmias Verified 08/23/16 12:40 telithromycin [From Ketek] Allergy Anaphylactic Verified 08/23/16 12:40 Shock - Anesthesia Plan Pre-Op Medication Ordered: None - Acknowledgements Anesthesia Type Planned: MAC Pt an Appropriate Candidate for the Planned Anesthesia: Yes Alternatives and Risks of Anesthesia Discussed w Pt/Guardian: Yes Pt/Guardian Understands and Agrees with Anesthesia Plan: Yes PreAnesthesia Questionnaire HEENT History: Reports: Impaired Vision Cardiovascular History: Reports: VT Other Cardiovascular History: Patient states she was told she's had an VT in the past secondary to chemotherapy, history of elevated BNP Respiratory History: Reports: Asthma, Other (See Below) Other Respiratory History: pneumonia, hypoxia, cough Gastrointestinal History: Reports: Diverticulosis, Irritable Bowel Syndrome 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 Stem cell transplant 2009 and 2011. Recurrence in November of 2015 and has been on chemotherapy since that time.fairly chemotherapy is to be given once monthly Dermatologic History: Reports: None - Past Surgical History Head Surgeries/Procedures: Reports: None GI Surgical History: Reports: Cholecystectomy Female Surgical History: Reports: Section Musculoskeletal Surgical History: Reports: ORIF Other Musculoskeletal Surgeries/Procedures:: ORIF right leg Oncologic Surgical History: Reports: Bone Marrow Transplant - SUBSTANCE USE Smoking Status *Q: Former Smoker Tobacco Use Within Last Twelve Months: Cigarettes Second Hand Smoke Exposure: No Days Per Week of Alcohol Use: 1 Number of Drinks Per Day: 0 Total Drinks Per Week: 0 Recreational Drug Use History: No - HOME MEDS Home Medications: Home Meds Acyclovir 800 mg PO BID 05/26/15 [History] Cyanocobalamin (Vitamin B-12) [Vitamin B-12] 1,000 mcg INJECT Q30D 05/26/15 [ History] Dexamethasone 8 mg PO ASDIRECTED PRN 05/26/15 [History] Furosemide [Lasix] 20 mg PO Q48H PRN 05/26/15 [History] Prochlorperazine Maleate [Compazine] 10 mg PO QID PRN 04/28/16 [History] Albuterol [IJD: Ventolin HFA] 2 puff INH Q6H PRN 08/23/16 [History] Albuterol/Ipratropium [DuoNeb 3.0-0.5 MG/3 ML] 3 ml INH QID PRN 08/23/16 [ History] Dicyclomine [Bentyl] 20 mg PO QID PRN 08/23/16 [History] Mometasone Furoate [Nasonex] 2 spray NASBOTH DAILY 08/23/16 [History] Multivitamin [Multivitamins] 1 tab PO DAILY 08/23/16 [History] Phenergan Plo Gel 0.2 ml TOP Q6H 08/23/16 [History] Potassium Chloride [K-Tab ER] 20 meq PO ASDIRECTED PRN 08/23/16 [History] Sodium Chloride/Aloe Vera [Kittery Saline Nasal Gel [place]] 1 spray NASBOTH Q2H PRN 08/23/16 [History] - CURRENT (IN HOUSE) MEDS Current Meds: Current Medications Albuterol/Ipratropium (Duoneb 3.0-0.5 Mg/3 Ml) 3 ml NEB ONETIME PRN PRN Reason: Shortness of Breath Stop: 08/26/16 18:00 Lactated Ringer's (Ringers, Lactated) 1,000 mls @ 125 mls/hr IV ASDIRECTED ROQUE Stop: 08/26/16 23:00 Lidocaine/Sodium Bicarbonate (Buffered Lidocaine 1% In Ns 8.4%) 0.25 ml .XX ONETIME PRN PRN Reason: Prior to IV Start Stop: 08/26/16 18:00 Sodium Chloride (Saline Flush) 10 ml FLUSH ASDIRECTED PRN PRN Reason: Keep Vein Open Stop: 08/26/16 18:00 Discontinued Medications Lidocaine/Sodium Bicarbonate (Buffered Lidocaine 1% In Ns 8.4%) 0.25 ml IV ONETIME PRN PRN Reason: Prior to IV Start
[2016-08-26] MEDS ORDERED: fentaNYL 100 MCG/2 ML SDV ONE (10:41)
[2016-08-26] MEDS ORDERED: Midazolam 1 MG/ML 2 ML SDV ONE ×2 (10:41→12:16)
[2016-08-26] MEDS ORDERED: Propofol 200 MG/20 ML SDV ONE ×2 (10:41→11:56)
[2016-08-26] MEDS ORDERED: Ondansetron 4 MG/2 ML SDV ONE (10:41)
[2016-08-26] MEDS ORDERED: Lidocaine 1% 4 ML ONE (10:42)
[2016-08-26] MEDS ORDERED: ceFAZolin 1 GM Vial ONE (10:50)
[2016-08-26] MEDS ORDERED: Heparin Sodium 5,000 Units/ML Vial ONE (11:01)
[2016-08-26] MEDS ORDERED: Lidocaine 1% with EPINEPHrine 1:100,000 20 ML MDV ONE (11:02)
[2016-08-26] MEDS ORDERED: Bupivacaine 0.5%/EPINEPHrine 1:200,000 50 ML MDV ONE (11:02)
[2016-08-26] MEDS ORDERED: Sodium Chloride 0.9% 50 ML SDV ONE (11:02)
[2016-08-26] MEDS ORDERED: ePHEDrine/Normal Saline 25 MG/5 ML Syringe ONE (12:09)
[2016-08-26] MEDS ORDERED: Lactated Ringers 1,000 ML ONE (12:10)
--- NOTE | 2016-08-26 12:21 | CR ---
Chest: Two fluoroscopic spot views were obtained of the chest utilizing C-arm device in the operating room. Port-A-Cath is identified. Tip lies within the superior vena cava. Fluoroscopy time is given as 72.9 seconds. Impression: 1. Findings as described above. Diagnostic code #2
[2016-08-26 13:45] VITALS: BP 118/56
--- NOTE | 2016-08-26 14:37 | CR ---
Chest: Portable view of the chest was obtained. Comparison: Previous chest x-ray of 06/30/16. Left-sided infusion catheter is seen. Tip lies within the superior vena cava near the right atrial junction. Heart size and mediastinum are within normal limits for portable technique. Lungs are clear with no acute infiltrates. Bony structures are grossly intact. Impression: 1. Left-sided infusion catheter as described above. 2. Nothing acute is identified on portable chest x-ray. Diagnostic code #2
--- NOTE | 2016-08-28 14:25 | PCM.OPNOTE ---
- General Post-Op/Procedure Note Date of Surgery/Procedure: 08/26/16 Operative Procedure(s): Port-a-cath placement with fluoroscopic guidance and interpretation Pre Op Diagnosis: Multiple myeloma Post-Op Diagnosis: Same Anesthesia Technique: Local, MAC Primary Surgeon: Cheryl Sims Anesthesia Provider: Yasmany Palacios Fluid Replacement, Intraop: 800 (mL crystalloid ) EBL in mLs: 5 Complications: None Condition: Good Free Text/Narrative:: IMPLANTED DEVICES: ClearVUE Powerport power injectable Port-a-cath INDICATION FOR PROCEDURE: La is a 56-year-old woman who was referred to me by Dr. Styles for evaluation for possible Port-A-Cath placement. The patient has known multiple myeloma. I discussed with the patient placement of a Port-A-Cath and the associated risks. The patient found these risks acceptable and agreed to proceed. DESCRIPTION OF PROCEDURE: The patient was taken to the operating room and placed in the supine position. The arms were tucked at the sides bilaterally and pressure points were padded. A transverse subscapular roll was placed. The patient's head was placed in a gel doughnut. The patient's breasts were taped down for retraction. Preoperative antibiotics were administered as per protocol. The patient was placed in Trendelenburg. The neck and upper chest were prepped and draped in usual sterile fashion with chlorhexidine. The patient is [id number] and we had discussed placement of the Port-A- Cath preferentially on the left. Approximately 10 mL of local anesthetic were infiltrated into the area of the planned port placement and injection site. A stab incision was made with a 15 blade. A 16-gauge needle was then used to access the left subclavian vein with return of non-pulsatile blood on the first attempt. A guidewire was passed without difficulty and its position was confirmed using fluoroscopy in the inferior vena cava. The needle was removed and the port pocket incision was made. A pocket was made directly over the chest wall fascia. A dilator was then advanced over the guidewire under direct fluoroscopic visualization. The inner cannula was removed as well as the wire. The catheter was advanced to the atriocaval junction and this was performed under fluoroscopy. The catheter was then trimmed and attached to the port. The port was then accessed and nonpulsatile blood was easily withdrawn. The port was then flushed with sterile saline. The port was secured in the pocket using 2-0 Prolene interrupted suture x3. The port was accessed once more and blood was aspirated and a total of 2 mL of 5000 units per mL heparin was instilled into the catheter for packing. 3-0 Vicryl suture was then used to reapproximate the deep subcutaneous tissue. 4-0 Vicryl was then used in running subcuticular fashion to reapproximate the skin. Dermabond followed by a folded 2 x 2 and a Tegaderm was applied. The patient was awakened from sedation and transferred to the recovery room in stable condition having tolerated the procedure well. Sponge and instrument counts were reported as correct at the end of the case. POST-OPERATIVE INSTRUCTIONS: A postoperative chest x-ray was obtained which I immediately reviewed. The port was in good position and there was no evidence of pneumothorax. There was a slight curvature of the tubing under the clavicle. The Port-A-Cath is immediately usable. The patient has been provided with a prescription for EMLA cream, to apply a dime-sized amount approximately 15-20 minutes prior to accessing the port. Pain medication was also provided. The patient may follow up as needed.
== END 2016-08-26 13:25 | disposition home or self-care (01) ==
LOC: JD.SDS 09:42
PROVIDERS: ATTEND Surgery
PROC: 06H033Z Insertion of Infusion Device into Inferior Vena Cava, Percutaneous Approach (ICD-10-PCS; principal; 2016-08-26)
DX: C90.02 Multiple myeloma in relapse (principal); F32.9 Major depressive disorder, single episode, unspecified; D80.1 Nonfamilial hypogammaglobulinemia; J45.909 Unspecified asthma, uncomplicated; E66.01 Morbid (severe) obesity due to excess calories; Z87.01 Personal history of pneumonia (recurrent); Z87.891 Personal history of nicotine dependence; Z68.43 Body mass index [BMI] 50.0-59.9, adult; Z88.1 Allergy status to other antibiotic agents; Z94.81 Bone marrow transplant status; Z94.84 Stem cells transplant status; Z90.49 Acquired absence of other specified parts of digestive tract; Z98.890 Other specified postprocedural states; Z79.899 Other long term (current) drug therapy
CPT/HCPCS: 36561; 71010; 77001; 94664; J0690; J1644; J2250; J2405; J3010; J7050; J7120; 00532; C1788; J2704

== ENCOUNTER 2018-11-08 12:22 | Emergency (ER) | payer OTHER, BC ==
[2018-11-08 12:43] VITALS: BP 112/57; PULSE 74
--- NOTE | 2018-11-08 15:33 | EDM.PDOC ---
ED HPI GENERAL MEDICAL PROBLEM - General Chief Complaint: General Stated Complaint: REACTION TO MEDICAITON ON FRIDAY WILIAN TODAY Time Seen by Provider: 11/08/18 12:34 Source of Information: Reports: Patient History Limitations: Reports: No Limitations - History of Present Illness INITIAL COMMENTS - FREE TEXT/NARRATIVE: The patient presents with shaking. She has multiple myeloma and she is getting chemo and radiation. She says the shaking started a few days ago. She is on 2 chemo agents and dexamethasone. She did get IVIG over a week ago and she reacted to it. She had to get benadryl and more steroids. She denies fever, chills, cough, congestion, runny nose. She has no chest pain and shortness of breath. She has no dysuria or hematuria. She had some radiation to her left tibia last week and she has some erythema to her left leg with some sores. She says the erythema is maybe a little worse. Onset: Gradual Duration: Day(s): Severity: Mild Improves with: Reports: None Worsens with: Reports: None Associated Symptoms: Reports: No Other Symptoms Left Leg Pain Score (Numeric/FACES): 2 - Related Data Allergies Allergy/AdvReac Type Severity Reaction Status Date / Time Sulfa (Sulfonamide Allergy Other Verified 02/08/18 04:10 Antibiotics) telithromycin [From Ketek] Allergy Anaphylactic Verified 02/08/18 04:10 Shock ciprofloxacin [From Cipro] AdvReac Arrhythmias Verified 02/08/18 04:10 ciprofloxacin HCl AdvReac Arrhythmias Verified 02/08/18 04:10 [From Cipro] levofloxacin [From Levaquin] AdvReac Arrhythmias Verified 02/08/18 04:10 Home Meds: Home Meds Acyclovir 400 mg PO DAILY 05/26/15 [History] Cyanocobalamin (Vitamin B-12) [Vitamin B-12] 1,000 mcg INJECT Q30D 05/26/15 [ History] Dexamethasone 5 mg PO ASDIRECTED PRN 05/26/15 [History] Furosemide [Lasix] 20 mg PO DAILY PRN 05/26/15 [History] Dicyclomine [Bentyl] 20 mg PO QID PRN 08/23/16 [History] Multivitamin [Multivitamins] 1 tab PO DAILY 08/23/16 [History] Aspirin 81 mg PO DAILY 11/08/18 [History] Elotuzumab [Empliciti] 10 mg IV ASDIRECTED 11/08/18 [History] Famotidine [Pepcid] 20 mg IV WEEKLY 11/08/18 [History] LORazepam 1 mg PO BEDTIME PRN 11/08/18 [History] Ondansetron [Zofran] 8 mg PO BID PRN 11/08/18 [History] Pomalidomide [Pomalyst] 4 mg PO DAILY 11/08/18 [History] Promethazine [Phenergan] 0.2 ml TOP ASDIRECTED 11/08/18 [History] Sulfamethoxazole/Trimethoprim [Bactrim 400-80 MG] 400 mg PO DAILY 11/08/18 [ History] atorvaSTATin Calcium [Lipitor] 40 mg PO DAILY 11/08/18 [History] Past Medical History HEENT History: Reports: Impaired Vision Cardiovascular History: Reports: Heart Failure, High Cholesterol Other Cardiovascular History: Patient states she was told she's had an NH in the past secondary to chemotherapy, history of elevated BNP Respiratory History: Reports: Asthma Other Respiratory History: pneumonia, hypoxia, cough Gastrointestinal History: Reports: Diverticulosis, Irritable Bowel Syndrome 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 Stem cell transplant 2009 and 2011. Recurrence in November of 2015 and has been on chemotherapy since that time.fairly chemotherapy is to be given once monthly Dermatologic History: Reports: None - Past Surgical History Head Surgeries/Procedures: Reports: None Cardiovascular Surgical History: Reports: Vascular Surgery GI Surgical History: Reports: Cholecystectomy Female Surgical History: Reports: Section Oncologic Surgical History: Reports: Bone Marrow Transplant Social & Family History - Family History Family Medical History: Noncontributory - Tobacco Use Smoking Status *Q: Never Smoker - Caffeine Use Caffeine Use: Reports: Soda - Recreational Drug Use Recreational Drug Use: No - Living Situation & Occupation Living situation: Reports: , with Spouse, with Family (1 son) 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[employer]) ED ROS GENERAL - Review of Systems Review Of Systems: See Below Constitutional: Reports: No Symptoms HEENT: Reports: No Symptoms Respiratory: Reports: No Symptoms Cardiovascular: Reports: No Symptoms Endocrine: Reports: No Symptoms GI/Abdominal: Reports: No Symptoms : Reports: No Symptoms Musculoskeletal: Reports: Other (Erythema to the left lower leg with some scabed sores) ED EXAM, GENERAL - Physical Exam Exam: See Below Exam Limited By: No Limitations General Appearance: Alert, No Apparent Distress Ears: Normal External Exam Nose: Normal Inspection Head: Atraumatic, Normocephalic Neck: Normal Inspection Respiratory/Chest: No Respiratory Distress, Lungs Clear, Normal Breath Sounds Cardiovascular: Regular Rate, Rhythm, No Edema, No Murmur GI/Abdominal: Soft, Non-Tender, No Organomegaly, No Mass Extremities: Other (Left leg has erythema with a couple scabed lesions) Course - Vital Signs Last Recorded V/S: Last Vital Signs Temp 96.7 F 11/08/18 12:41 Pulse 74 11/08/18 12:41 Resp 20 11/08/18 12:41 BP 112/57 L 11/08/18 12:41 Pulse Ox 100 11/08/18 12:41 - Orders/Labs/Meds Orders: Active Orders 24 hr Category Date Time Status Cardiac Monitoring [RC] . DIRECTED Care 11/08/18 12:52 Active Implanted Port Access [RC] ONETIME Care 11/08/18 12:51 Active CULTURE BLOOD [BC] Stat Lab 11/08/18 15:22 Ordered CULTURE BLOOD [BC] Stat Lab 11/08/18 15:22 Ordered Blood Culture x2 Reflex Set [OM.PC] Stat Oth 11/08/18 15:22 Ordered Labs: Laboratory Tests 11/08/18 11/08/18 Range/Units 13:10 13:10 WBC 1.97 L* (3.98-10.04) K/mm3 RBC 4.80 (3.98-5.22) M/mm3 Hgb 12.6 (11.2-15.7) gm/L Hct 40.8 (34.1-44.9) % MCV 85.0 D (79.4-94.8) fl MCH 26.3 (25.6-32.2) pg MCHC 30.9 L (32.2-35.5) g/dl RDW Std Deviation 48.0 H (36.4-46.3) fL Plt Count 85 L (182-369) K/mm3 MPV 8.8 L (9.4-12.3) fl Neut % (Auto) 20.8 L (34.0-71.1) % Lymph % (Auto) 45.2 (19.3-51.7) % Garden % (Auto) 11.7 (4.7-12.5) % Eos % (Auto) 20.3 H (0.7-5.8) Baso % (Auto) 2.0 H (0.1-1.2) % Neut # (Auto) 0.41 L (1.56-6.13) K/mm3 Lymph # (Auto) 0.89 L (1.18-3.74) K/mm3 Garden # (Auto) 0.23 L (0.24-0.36) K/mm3 Eos # (Auto) 0.40 H (0.04-0.36) K/mm3 Baso # (Auto) 0.04 (0.01-0.08) K/mm3 Manual Slide Review Abnormal smear Sodium 141 (136-145) mEq/L Potassium 3.5 (3.5-5.1) mEq/L Chloride 104 (98-107) mEq/L Carbon Dioxide 30 (21-32) mEq/L Anion Gap 10.5 (5-15) BUN 14 (7-18) mg/dL Creatinine 0.9 (0.55-1.02) mg/dL Est Cr Clr Drug Dosing 49.54 mL/min Estimated GFR (MDRD) > 60 (>60) mL/min BUN/Creatinine Ratio 15.6 (14-18) Glucose 108 H (74-106) mg/dL Calcium 9.0 (8.5-10.1) mg/dL Phosphorus 4.0 (2.6-4.7) mg/dL Magnesium 1.7 L (1.8-2.4) mg/dl Total Bilirubin 0.5 (0.2-1.0) mg/dL AST 9 L (15-37) U/L ALT 32 (14-59) U/L Alkaline Phosphatase 153 H (46-116) U/L Total Protein 7.1 (6.4-8.2) g/dl Albumin 2.9 L (3.4-5.0) g/dl Globulin 4.2 gm/dL Albumin/Globulin Ratio 0.7 L (1-2) TSH 3rd Generation 2.191 (0.358-3.74) uIU/mL - Re-Assessments/Exams Free Text/Narrative Re-Assessment/Exam: 11/08/18 15:35 I ordered labs and her WBC was low at 1.97. Her Hgb was normal at 12.6. Her platelets are low at 85. Last week it was 70. Her CMP looks good. I called [facility] in [place] and talked with Dr Dooley the oncologist chocolate production machine operator and he wanted her to keep on the dexamethasone. He felt that may be causing her symptoms. He was okay with me getting blood cultures and upping her bactrim to BID until we had culture results. Departure - Departure Time of Disposition: 15:40 Disposition: Home, Self-Care 01 Condition: Good Clinical Impression: Shaking, Cellulitis of left leg - Discharge Information *PRESCRIPTION DRUG MONITORING PROGRAM REVIEWED*: No *COPY OF PRESCRIPTION DRUG MONITORING REPORT IN PATIENT HERLINDA: No Referrals: Keesha Ross MD [Primary Care Provider] - Additional Instructions: Take the bactrim 2 times per day for a week. Call Dr Corrales's office tomorrow and let him know the symptoms you are having. Please return if you are worse. - My Orders Last 24 Hours: My Active Orders 11/08/18 12:51 Implanted Port Access [RC] ONETIME 11/08/18 12:52 Cardiac Monitoring [RC] . DIRECTED 11/08/18 15:22 CULTURE BLOOD [BC] Stat CULTURE BLOOD [BC] Stat Blood Culture x2 Reflex Set [OM.PC] Stat - Assessment/Plan Last 24 Hours: My Active Orders 11/08/18 12:51 Implanted Port Access [RC] ONETIME 11/08/18 12:52 Cardiac Monitoring [RC] . DIRECTED 11/08/18 15:22 CULTURE BLOOD [BC] Stat CULTURE BLOOD [BC] Stat Blood Culture x2 Reflex Set [OM.PC] Stat
== END 2018-11-08 16:11 | disposition home or self-care (01) ==
LOC: JD.ED 12:22
DX: L03.116 Cellulitis of left lower limb (principal); R25.1 Tremor, unspecified; C90.00 Multiple myeloma not having achieved remission; I50.9 Heart failure, unspecified; E78.00 Pure hypercholesterolemia, unspecified; J45.909 Unspecified asthma, uncomplicated; Z88.2 Allergy status to sulfonamides; Z88.1 Allergy status to other antibiotic agents; Z79.899 Other long term (current) drug therapy; Z79.82 Long term (current) use of aspirin
CPT/HCPCS: 36415; 80053; 83735; 84100; 84443; 85025; 87040; 99283

== ENCOUNTER 2018-12-27 08:32 | Emergency (ER) | payer OTHER, BC ==
[2018-12-27 09:07] VITALS: BP 133/72; PULSE 84
[2018-12-27] MEDS ORDERED: Lactated Ringers 1,000 ML IV ONE (09:34)
--- NOTE | 2018-12-27 09:48 | EDM.PDOC ---
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 This morning she was unable to flush port site. When she does try inject saline "there is no flow". She states that this all worked fine yesterday but she did have similar difficulty about one week ago. No fever, chills, chest pain or other unusal sx. - Related Data Allergies Allergy/AdvReac Type Severity Reaction Status Date / Time Sulfa (Sulfonamide Allergy Other Verified 02/08/18 04:10 Antibiotics) telithromycin [From Ketek] Allergy Anaphylactic Verified 02/08/18 04:10 Shock ciprofloxacin [From Cipro] AdvReac Arrhythmias Verified 02/08/18 04:10 ciprofloxacin HCl AdvReac Arrhythmias Verified 02/08/18 04:10 [From Cipro] levofloxacin [From Levaquin] AdvReac Arrhythmias Verified 02/08/18 04:10 Home Meds: Home Meds Acyclovir 400 mg PO DAILY 05/26/15 [History] Cyanocobalamin (Vitamin B-12) [Vitamin B-12] 1,000 mcg INJECT Q30D 05/26/15 [ History] Dexamethasone 5 mg PO ASDIRECTED PRN 05/26/15 [History] Furosemide [Lasix] 20 mg PO DAILY PRN 05/26/15 [History] Dicyclomine [Bentyl] 20 mg PO QID PRN 08/23/16 [History] Multivitamin [Multivitamins] 1 tab PO DAILY 08/23/16 [History] Aspirin 81 mg PO DAILY 11/08/18 [History] Elotuzumab [Empliciti] 10 mg IV ASDIRECTED 11/08/18 [History] Famotidine [Pepcid] 20 mg IV WEEKLY 11/08/18 [History] LORazepam 1 mg PO BEDTIME PRN 11/08/18 [History] Ondansetron [Zofran] 8 mg PO BID PRN 11/08/18 [History] Pomalidomide [Pomalyst] 4 mg PO DAILY 11/08/18 [History] Promethazine [Phenergan] 0.2 ml TOP ASDIRECTED 11/08/18 [History] Sulfamethoxazole/Trimethoprim [Bactrim 400-80 MG] 400 mg PO DAILY 11/08/18 [ History] atorvaSTATin Calcium [Lipitor] 40 mg PO DAILY 11/08/18 [History] Past Medical History HEENT History: Reports: Impaired Vision Cardiovascular History: Reports: Heart Failure, High Cholesterol Other Cardiovascular History: Patient states she was told she's had an [place] in the past secondary to chemotherapy, history of elevated BNP Respiratory History: Reports: Asthma Other Respiratory History: pneumonia, hypoxia, cough Gastrointestinal History: Reports: Diverticulosis, Irritable Bowel Syndrome 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 Stem cell transplant 2009 and 2011. Recurrence in November of 2015 and has been on chemotherapy since that time.fairly chemotherapy is to be given once monthly Dermatologic History: Reports: None - Past Surgical History Head Surgeries/Procedures: Reports: None Cardiovascular Surgical History: Reports: Vascular Surgery GI Surgical History: Reports: Cholecystectomy Female Surgical History: Reports: Section Oncologic Surgical History: Reports: Bone Marrow Transplant Social & Family History - Family History Family Medical History: Noncontributory - Tobacco Use Smoking Status *Q: Never Smoker Second Hand Smoke Exposure: No - Caffeine Use Caffeine Use: Reports: None - Recreational Drug Use Recreational Drug Use: No - Living Situation & Occupation Living situation: Reports: , with Spouse, with Family (1 son) 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 No: Facial Swelling Neck: Supple, Full Range of Motion, Other (no JVD) Respiratory/Chest: No Respiratory Distress, Lungs Clear, Normal Breath Sounds Cardiovascular: Regular Rate, Rhythm, Other (She has port site L chest with IV needle access, no visible swelling, erythema, drainage) Extremities: Normal Inspection, Normal Range of Motion. No: Pedal Edema Neurological: Alert, Oriented, No Motor/Sensory Deficits Skin Exam: Warm, Dry, Normal Color, No Rash Course - Vital Signs Last Recorded V/S: Last Vital Signs Temp 96.7 F 12/27/18 09:00 Pulse 84 12/27/18 09:00 Resp 16 12/27/18 09:00 BP 133/72 12/27/18 09:00 Pulse Ox 95 12/27/18 09:00 - Orders/Labs/Meds Meds: Medications Discontinued Medications Generic Name Dose Route Start Last Admin Trade Name Freq PRN Reason Stop Dose Admin Ondansetron HCl 4 mg 12/27/18 10:27 Zofran Odt PO 12/27/18 10:28 ONETIME ONE - Re-Assessments/Exams Free Text/Narrative Re-Assessment/Exam: 12/28/18 09:51 One of our RN's changed out the external catheter for access, it flushed well, patient infused her AM abx prior to discharge. Departure - Departure Time of Disposition: 09:55 Disposition: Home, Self-Care 01 Condition: Fair Clinical Impression: Encounter for care related to Port-a-Cath - Discharge Information Referrals: Reji Corrales MD [Primary Care Provider] - Forms: ED Department Discharge Additional Instructions: Continue current IV antibiotics, other meds as previously prescribed. Follow up clinic as needed, return to ED as needed.
[2018-12-27] MEDS ORDERED: Ondansetron 4 MG Tab.DIS PO ONE (10:27)
== END 2018-12-27 10:50 | disposition home or self-care (01) ==
LOC: JD.ED 08:32
DX: Z45.2 Encounter for adjustment and management of vascular access device (principal); I50.9 Heart failure, unspecified; E78.00 Pure hypercholesterolemia, unspecified; J45.909 Unspecified asthma, uncomplicated; E66.9 Obesity, unspecified; Z68.43 Body mass index [BMI] 50.0-59.9, adult; Z79.899 Other long term (current) drug therapy; Z88.1 Allergy status to other antibiotic agents; Z88.2 Allergy status to sulfonamides
CPT/HCPCS: 99283

== ENCOUNTER 2019-08-09 16:58 | Emergency (ER) | payer OTHER, BC ==
[2019-08-09] MEDS ORDERED: HYDROmorphone 0.5 MG/0.5 ML Syringe IVPUSH ONE ×2 (17:45→19:56)
[2019-08-09] MEDS ORDERED: Sodium Chloride 0.9% 10 ML Syringe FLUSH PRN (18:15)
--- NOTE | 2019-08-09 18:57 | EDM.PDOC ---
ED HPI GENERAL MEDICAL PROBLEM - General Chief Complaint: Gastrointestinal Problem Stated Complaint: CHEST PAIN AND SOB Time Seen by Provider: 08/09/19 17:33 Source of Information: Reports: Patient History Limitations: Reports: No Limitations - History of Present Illness INITIAL COMMENTS - FREE TEXT/NARRATIVE: The patient presents with shortness of breath, abdominal distention and chest pain. This has been going on for a few days. The shortness of breath was worse today. 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 She has a history of the right ureter being obstructed from a growth. She is going to [facility] tomorrow to have a stent placed. She says she has more pain and shortness of breath. She has gained about 30 pounds this past month and 17 of that in the past week. She has no fever, chills, cough, congestion, or runny nose. She has some swelling in her legs. She did take some lasix this weekend and it did not help. Onset: Gradual Duration: Week(s): Location: Reports: Chest, Abdomen Quality: Reports: Pressure Severity: Moderate Improves with: Reports: None Worsens with: Reports: None Associated Symptoms: Reports: Chest Pain, Shortness of Breath. Denies: Cough, Fever/Chills, Headaches, Nausea/Vomiting Right Abdominal Pain Score (Numeric/FACES): 8 - Related Data Allergies Allergy/AdvReac Type Severity Reaction Status Date / Time Sulfa (Sulfonamide Allergy Other Verified 08/09/19 17:26 Antibiotics) telithromycin [From Ketek] Allergy Anaphylactic Verified 08/09/19 17:26 Shock Home Meds: Home Meds Acyclovir 400 mg PO DAILY 05/26/15 [History] Cyanocobalamin (Vitamin B-12) [Vitamin B-12] 1,000 mcg INJECT Q30D 05/26/15 [ History] Dexamethasone 5 mg PO ASDIRECTED PRN 05/26/15 [History] Furosemide [Lasix] 20 mg PO DAILY PRN 05/26/15 [History] Dicyclomine [Bentyl] 20 mg PO QID PRN 08/23/16 [History] Multivitamin [Multivitamins] 1 tab PO DAILY 08/23/16 [History] Aspirin 81 mg PO DAILY 11/08/18 [History] Elotuzumab [Empliciti] 10 mg IV ASDIRECTED 11/08/18 [History] Famotidine [Pepcid] 20 mg IV WEEKLY 11/08/18 [History] LORazepam 1 mg PO BEDTIME PRN 11/08/18 [History] Ondansetron [Zofran] 8 mg PO BID PRN 11/08/18 [History] Pomalidomide [Pomalyst] 4 mg PO DAILY 11/08/18 [History] Promethazine [Phenergan] 0.2 ml TOP ASDIRECTED 11/08/18 [History] Sulfamethoxazole/Trimethoprim [Bactrim 400-80 MG] 400 mg PO DAILY 11/08/18 [ History] atorvaSTATin Calcium [Lipitor] 40 mg PO DAILY 11/08/18 [History] Past Medical History HEENT History: Reports: Impaired Vision Cardiovascular History: Reports: Heart Failure, High Cholesterol Other Cardiovascular History: Patient states she was told she's had an NE in the past secondary to chemotherapy, history of elevated BNP Respiratory History: Reports: Asthma Other Respiratory History: pneumonia, hypoxia, cough Gastrointestinal History: Reports: Diverticulosis, Irritable Bowel Syndrome Genitourinary History: Reports: Other (See Below) Other Genitourinary History: renal issues 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: Musculoskeletal History: Reports: Other (See Below) Other Musculoskeletal History: 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 Stem cell transplant 2009 and 2011. Recurrence in November of 2015 and has been on chemotherapy since that time.fairly chemotherapy is to be given once monthly Dermatologic History: Reports: None - Past Surgical History Head Surgeries/Procedures: Reports: None Cardiovascular Surgical History: Reports: Vascular Surgery GI Surgical History: Reports: Cholecystectomy Female Surgical History: Reports: Section Oncologic Surgical History: Reports: Bone Marrow Transplant Other Oncologic Surgeries/Procedures: neutropenic precautions Social & Family History - Family History Family Medical History: Noncontributory - Tobacco Use Smoking Status *Q: Never Smoker Second Hand Smoke Exposure: No - Caffeine Use Caffeine Use: Reports: None - Recreational Drug Use Recreational Drug Use: No - Living Situation & Occupation Living situation: Reports: , with Spouse, with Family (1 son) 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 Denies: Cough Cardiovascular: Reports: Chest Pain, Edema Endocrine: Reports: No Symptoms GI/Abdominal: Reports: No Symptoms : Reports: No Symptoms Musculoskeletal: Reports: Other (Swelling in her legs) ED EXAM, GI/ABD - Physical Exam Exam: See Below Exam Limited By: No Limitations General Appearance: Alert, No Apparent Distress Ears: Normal External Exam Nose: Normal Inspection Head: Atraumatic, Normocephalic Neck: Normal Inspection Respiratory/Chest: No Respiratory Distress, Decreased Breath Sounds Cardiovascular: Regular Rate, Rhythm, No Edema, No Murmur GI/Abdominal Exam: Soft, No Organomegaly, No Mass, Tender (Mild to moderate tenderness to the right abdomen) EKG INTERPRETATION EKG Date: 08/09/19 Time: 18:48 Rhythm: NSR Rate (Beats/Min): 84 [place]: Normal P-Wave: Present QRS: Normal ST-T: Normal QT: Normal Course - Vital Signs Last Recorded V/S: Last Vital Signs Temp 97.0 F 08/09/19 17:22 Pulse 89 08/09/19 17:22 Resp 23 H 08/09/19 17:22 BP 123/53 L 08/09/19 17:22 Pulse Ox 100 08/09/19 17:22 - Orders/Labs/Meds Orders: Active Orders 24 hr Category Date Time Status Cardiac Monitoring [RC] . DIRECTED Care 08/09/19 17:44 Active EKG Documentation Completion [RC] STAT Care 08/09/19 17:45 Active Peripheral IV Care [RC] . DIRECTED Care 08/09/19 18:16 Active CULTURE URINE [RM] Stat Lab 08/09/19 19:43 Ordered UA W/MICROSCOPIC [URIN] Stat Lab 08/09/19 17:44 Ordered Sodium Chloride 0.9% [Saline Flush] Med 08/09/19 18:15 Active 10 ml FLUSH ASDIRECTED PRN cefTRIAXone [Rocephin] 2 gm Med 08/09/19 19:45 Ordered Sodium Chloride 0.9% [Normal Saline] 100 ml IV ONETIME Peripheral IV Insertion Adult [OM.PC] Routine Oth 08/09/19 18:15 Ordered Medication Orders Ceftriaxone Sodium 2 gm/ (Sodium Chloride) 100 mls @ 200 mls/hr IV ONETIME ONE Stop: 08/09/19 20:14 Sodium Chloride (Saline Flush) 10 ml FLUSH ASDIRECTED PRN PRN Reason: Keep Vein Open Last Admin: 08/09/19 19:17 Dose: 10 ml Labs: Laboratory Tests 08/09/19 08/09/19 08/09/19 Range/Units 18:46 18:46 18:46 WBC 11.81 H (3.98-10.04) K/mm3 RBC 3.76 L (3.98-5.22) M/mm3 Hgb 10.3 L D (11.2-15.7) gm/dl Hct 35.0 (34.1-44.9) % MCV 93.1 D (79.4-94.8) fl MCH 27.4 (25.6-32.2) pg MCHC 29.4 L (32.2-35.5) g/dl RDW Std Deviation 51.0 H (36.4-46.3) fL Plt Count 208 D (182-369) K/mm3 MPV 9.2 L (9.4-12.3) fl Neut % (Auto) 76.5 H (34.0-71.1) % Lymph % (Auto) 7.1 L (19.3-51.7) % [place] % (Auto) 7.2 (4.7-12.5) % Eos % (Auto) 6.0 H (0.7-5.8) Baso % (Auto) 1.7 H (0.1-1.2) % Neut # (Auto) 9.03 H (1.56-6.13) K/mm3 Lymph # (Auto) 0.84 L (1.18-3.74) K/mm3 [place] # (Auto) 0.85 H (0.24-0.36) K/mm3 Eos # (Auto) 0.71 H (0.04-0.36) K/mm3 Baso # (Auto) 0.20 H (0.01-0.08) K/mm3 Manual Slide Review Abnormal smear Sodium 143 (136-145) mEq/L Potassium 3.7 (3.5-5.1) mEq/L Chloride 104 (98-107) mEq/L Carbon Dioxide 30 (21-32) mEq/L Anion Gap 12.7 (5-15) BUN 13 (7-18) mg/dL Creatinine 1.5 H (0.55-1.02) mg/dL Est Cr Clr Drug Dosing 29.36 mL/min Estimated GFR (MDRD) 36 (>60) mL/min BUN/Creatinine Ratio 8.7 L (14-18) Glucose 92 (74-106) mg/dL Calcium 9.2 (8.5-10.1) mg/dL Total Bilirubin 0.4 (0.2-1.0) mg/dL AST 32 (15-37) U/L ALT 44 (14-59) U/L Alkaline Phosphatase 120 H (46-116) U/L Troponin I 0.027 (0.00-0.056) ng/mL NT-Pro-B Natriuret Pep 1950 H (0-125) pg/mL Total Protein 7.2 (6.4-8.2) g/dl Albumin 2.7 L (3.4-5.0) g/dl Globulin 4.5 gm/dL Albumin/Globulin Ratio 0.6 L (1-2) Meds: Medications Generic Name Dose Route Start Last Admin Trade Name Freq PRN Reason Stop Dose Admin Ceftriaxone Sodium 2 gm/ 100 mls @ 200 mls/hr 08/09/19 19:45 Sodium Chloride IV 08/09/19 20:14 ONETIME ONE Sodium Chloride 10 ml 08/09/19 18:15 08/09/19 19:17 Saline Flush FLUSH 10 ml ASDIRECTED PRN Administration Keep Vein Open Discontinued Medications Generic Name Dose Route Start Last Admin Trade Name Freq PRN Reason Stop Dose Admin Hydromorphone HCl 0.25 mg 08/09/19 17:45 08/09/19 18:28 Dilaudid IVPUSH 08/09/19 17:46 0.25 mg ONETIME ONE Administration - Re-Assessments/Exams Free Text/Narrative Re-Assessment/Exam: 08/09/19 18:59 I ordered an EKG, CXR, CT of her abdomen and pelvis without contrast, labs and dilaudid 0.25mg IV. 08/09/19 19:39 Her CXR looks good. Her WBC is elevated at 11.81. Her Hgb is low at 10.3. Her creatinine is elevated at 1.5. Her alk phos is elevated at 120. Her BNP is elevated at 1951. Her troponin is negative. Her CT shows marked inflammatory change around the right kidney extending to the midline and extending inferiorly into the pelvis. Findings most likely represent forniceal rupture from high-grade ureteral obstruction. There is a 3.6 mm calcification within the pelvis which is in good location to represent an obstructing ureteral stone although this is difficult to confirm as the ureter is obscured in this area. Small amount of ascites around the liver 08/09/19 19:56 I called [facility] in [place] and talked with the urologist mounter sousaphones Dr Majano and he wanted a cath UA and culture. He also wanted a dose rocephin. Departure - Departure Time of Disposition: 20:00 Disposition: DC/Tfer to Acute Hospital 02 Condition: Fair Clinical Impression: Ureteral obstruction, right Kidney capsule rupture Qualifiers: Encounter type: initial encounter Laterality: right Qualified Code(s): S37.061A - Major laceration of right kidney, initial encounter - Discharge Information Referrals: Rjei Corrales MD [Primary Care Provider] - Forms: ED Department Discharge Sepsis Event Note (ED) - Evaluation Sepsis Screening Result: No Definite Risk - Focused Exam Vital Signs: Vital Signs Temp Pulse Resp BP Pulse Ox 08/09/19 17:22 97.0 F 89 23 H 123/53 L 100 - My Orders Last 24 Hours: My Active Orders 08/09/19 17:44 Cardiac Monitoring [RC] . DIRECTED UA W/MICROSCOPIC [URIN] Stat 08/09/19 17:45 EKG Documentation Completion [RC] STAT 08/09/19 18:15 Sodium Chloride 0.9% [Saline Flush] 10 ml FLUSH ASDIRECTED PRN Peripheral IV Insertion Adult [OM.PC] Routine 08/09/19 18:16 Peripheral IV Care [RC] . DIRECTED 08/09/19 19:43 CULTURE URINE [RM] Stat 08/09/19 19:45 cefTRIAXone [Rocephin] 2 gm Sodium Chloride 0.9% [Normal Saline] 100 ml IV ONETIME - Assessment/Plan Last 24 Hours: My Active Orders 08/09/19 17:44 Cardiac Monitoring [RC] . DIRECTED UA W/MICROSCOPIC [URIN] Stat 08/09/19 17:45 EKG Documentation Completion [RC] STAT 08/09/19 18:15 Sodium Chloride 0.9% [Saline Flush] 10 ml FLUSH ASDIRECTED PRN Peripheral IV Insertion Adult [OM.PC] Routine 08/09/19 18:16 Peripheral IV Care [RC] . DIRECTED 08/09/19 19:43 CULTURE URINE [RM] Stat 08/09/19 19:45 cefTRIAXone [Rocephin] 2 gm Sodium Chloride 0.9% [Normal Saline] 100 ml IV ONETIME
--- NOTE | 2019-08-09 19:31 | CT ---
CT abdomen and pelvis Technique: Multiple axial sections were obtained from above the dome of the diaphragm inferiorly through the pubic symphysis. Intravenous and oral contrast not utilized. Study has been performed as a ureteral stone protocol. Comparison: No prior CT abdomen or pelvis exam. Findings: Severe inflammatory change is seen around the right kidney extending midline and into the pelvis. Right kidney shows hydronephrosis. Right ureter is obscured from the inflammatory change. There is a calcification within the right lower pelvis measuring 3.6 mm in size. This is in good location to be an obstructing distal right ureteral stone although ureter is not visualized to absolutely confirm. Left ureter is also pretty much obscured from the inflammatory change. Visualized lung bases show nothing acute. Small amount of fluid is seen around the spleen and around the liver. No focal abnormality appreciated within the liver or spleen. Adrenal glands are obscured from the inflammatory change. Pancreas shows no discrete abnormality. Aorta shows atherosclerotic change without aneurysm. No retroperitoneal adenopathy is identified. Fat-containing umbilical hernia is noted. No pelvic mass or adenopathy is seen. Bone window settings were reviewed which show slight degenerative change throughout the spine. Impression: 1. Marked inflammatory change around the right kidney extending to the midline and extending inferiorly into the pelvis. Findings most likely represent forniceal rupture from high-grade ureteral obstruction. There is a 3.6 mm calcification within the pelvis which is in good location to represent an obstructing ureteral stone although this is difficult to confirm as the ureter is obscured in this area. 2. Small amount of ascites around the liver and spleen which most likely represents fluid from the forniceal rupture of the kidney. 3. No other acute finding is seen. Diagnostic code #5 This report was dictated in MDT
--- NOTE | 2019-08-09 19:31 | CR ---
Chest: PA view of the chest was obtained. Comparison: Prior chest x-ray of 08/26/16. Heart size and mediastinum are within normal limits. Lungs are clear. Left-sided infusion port is seen. Bony structures are grossly intact. Impression: 1. Nothing acute is seen on PA chest x-ray. Diagnostic code #1 This report was dictated in MDT
[2019-08-09] MEDS ORDERED: cefTRIAXone 2 GM in Sodium Chloride 0.9% 100 ML IV ONE (19:45)
[2019-08-09 21:11] VITALS: BP 145/53; PULSE 88
== END 2019-08-09 20:30 ==
LOC: JD.ED 16:58
DX: S37.061A Major laceration of right kidney, initial encounter (principal); N13.5 Crossing vessel and stricture of ureter without hydronephrosis; I50.9 Heart failure, unspecified; E78.00 Pure hypercholesterolemia, unspecified; E66.9 Obesity, unspecified; Z68.43 Body mass index [BMI] 50.0-59.9, adult; Z88.2 Allergy status to sulfonamides; Z88.1 Allergy status to other antibiotic agents; Z79.82 Long term (current) use of aspirin; Z79.899 Other long term (current) drug therapy; X58.XXXA Exposure to other specified factors, initial encounter
CPT/HCPCS: 36415; 71045; 74176; 80053; 81001; 83880; 84484; 85025; 87086; 93005; 96365; 96375; 96376; 99285; J0696; J1170; J7050; 93010; 99284

== ENCOUNTER 2019-11-18 16:21 | Emergency (ER) | payer OTHER, BC ==
[2019-11-18 17:21] VITALS: PULSE 84
--- NOTE | 2019-11-18 17:45 | EDM.PDOC ---
<EvitaNash Sanjana - Last Filed: 11/18/19 22:23> ED HPI GENERAL MEDICAL PROBLEM - General Chief Complaint: General Stated Complaint: CHEMO ISSUE Time Seen by Provider: 11/18/19 17:00 - History of Present Illness INITIAL COMMENTS - FREE TEXT/NARRATIVE: Patient is a 59-year-old female sent over here from [facility]. Patient is treated with chemotherapy for multiple myeloma. She is noted today on lab work to have some renal insufficiency and elevated potassium at 6.2. Patient's case was discussed with Dr. Strauss a outside plant supervisor in [place] as there is no beds available in [place] according to [place] nurse practitioner that works with Dr. Corrales. It was advised the patient come to the emergency room receive insulin and glucose and be transferred to [place]. Bilateral Lower Leg Pain Score (Numeric/FACES): 2 - Related Data Allergies Allergy/AdvReac Type Severity Reaction Status Date / Time Sulfa (Sulfonamide Allergy Other Verified 11/18/19 17:21 Antibiotics) telithromycin [From Ketek] Allergy Anaphylactic Verified 11/18/19 17:21 Shock Home Meds: Home Meds Acyclovir 400 mg PO DAILY 05/26/15 [History] Cyanocobalamin (Vitamin B-12) [Vitamin B-12] 1,000 mcg INJECT Q30D 05/26/15 [History] Dexamethasone 5 mg PO ASDIRECTED PRN 05/26/15 [History] Furosemide [Lasix] 20 mg PO DAILY PRN 05/26/15 [History] Dicyclomine [Bentyl] 20 mg PO QID PRN 08/23/16 [History] Multivitamin [Multivitamins] 1 tab PO DAILY 08/23/16 [History] Aspirin 81 mg PO DAILY 11/08/18 [History] Elotuzumab [Empliciti] 10 mg IV ASDIRECTED 11/08/18 [History] Famotidine [Pepcid] 20 mg IV WEEKLY 11/08/18 [History] LORazepam 1 mg PO BEDTIME PRN 11/08/18 [History] Ondansetron [Zofran] 8 mg PO BID PRN 11/08/18 [History] Pomalidomide [Pomalyst] 4 mg PO DAILY 11/08/18 [History] Promethazine [Phenergan] 0.2 ml TOP ASDIRECTED 11/08/18 [History] Sulfamethoxazole/Trimethoprim [Bactrim 400-80 MG] 400 mg PO DAILY 11/08/18 [History] atorvaSTATin Calcium [Lipitor] 40 mg PO DAILY 11/08/18 [History] Magnesium Oxide [Mag-Oxide Magnesium] 1 tab PO DAILY 11/18/19 [History] aMILoride [Midamor] 5 mg PO BID 11/18/19 [History] traMADol HCl [Tramadol HCl] 100 mg PO ASDIRECTED PRN 11/18/19 [History] Past Medical History HEENT History: Reports: Impaired Vision Cardiovascular History: Reports: Heart Failure, High Cholesterol Other Cardiovascular History: Patient states she was told she's had an AK in the past secondary to chemotherapy, history of elevated BNP Respiratory History: Reports: Asthma Other Respiratory History: pneumonia, hypoxia, cough Gastrointestinal History: Reports: Diverticulosis, Irritable Bowel Syndrome Genitourinary History: Reports: Other (See Below) Other Genitourinary History: renal issues 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 History: Reports: Musculoskeletal History: Reports: Other (See Below) Other Musculoskeletal History: 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 Stem cell transplant 2009 and 2011. Recurrence in November of 2015 and has been on chemotherapy since that time.fairly chemotherapy is to be given once monthly Dermatologic History: Reports: None - Past Surgical History Head Surgeries/Procedures: Reports: None Cardiovascular Surgical History: Reports: Vascular Surgery GI Surgical History: Reports: Cholecystectomy Female Surgical History: Reports: Section Oncologic Surgical History: Reports: Bone Marrow Transplant Other Oncologic Surgeries/Procedures: neutropenic precautions Social & Family History - Family History Family Medical History: Noncontributory - Caffeine Use Caffeine Use: Reports: None - Living Situation & Occupation Living situation: Reports: , with Spouse, with Family (1 son) 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 Denies: No Symptoms, Fever, Chills HEENT: Reports: No Symptoms Respiratory: Reports: No Symptoms Cardiovascular: Reports: No Symptoms Endocrine: Reports: No Symptoms GI/Abdominal: Reports: No Symptoms : Reports: No Symptoms Musculoskeletal: Reports: No Symptoms Skin: Reports: No Symptoms Neurological: Reports: No Symptoms ED EXAM, GENERAL - Physical Exam Exam: See Below Exam Limited By: No Limitations General Appearance: Alert, No Apparent Distress Head: Atraumatic, Normocephalic Neck: Normal Inspection, Supple, Non-Tender, Full Range of Motion Respiratory/Chest: No Respiratory Distress, Lungs Clear, Normal Breath Sounds Cardiovascular: Regular Rate, Rhythm, No Edema, No Murmur GI/Abdominal: Normal Bowel Sounds, Soft, Non-Tender Back Exam: Normal Inspection, CVA Tenderness (L), CVA Tenderness (R) Extremities: Normal Inspection, No Pedal Edema Neurological: Alert, Oriented, Normal Cognition Course - Re-Assessments/Exams Free Text/Narrative Re-Assessment/Exam: 11/18/19 18:33 Labs from [place] a creatinine of 4.73 BUN of 45 potassium 6.2 sodium 136 chloride 106 CO2 15 anion gap 21 is obtained from the patient's phone it was reported to me that we we would receive records from [place] apparently they never made it. It took us a while to not find them. We will give her an insulin bolus followed by dextrose 11/18/19 21:24 Patient's blood sugar dropped to 30. She is feeling better after amp of D50. And we will start her on a D10W at 50 cc an hour. [facility] did call and did accept the patient. I talked to who is kind enough to accept at 9 PM. We will give 30 g of Kayexalate Departure - Departure Time of Disposition: 21:00 Disposition: DC/Tfer to [facility] 02 Clinical Impression: Acute renal failure, Hyperkalemia, Multiple myeloma - Discharge Information Referrals: Reji Corrales MD [Primary Care Provider] - Forms: ED Department Discharge Sepsis Event Note (ED) - Evaluation Sepsis Screening Result: No Definite Risk <Gerardo Rudolph - Last Filed: 11/20/19 10:49> Course - Vital Signs Last Recorded V/S: Last Vital Signs Temp 35.8 C L 11/18/19 17:17 Pulse 84 11/18/19 17:17 Resp 24 H 11/18/19 17:17 BP Pulse Ox 100 11/18/19 17:17 - Orders/Labs/Meds Labs: Laboratory Tests 11/18/19 11/18/19 11/18/19 Range/Units 18:45 18:45 19:57 WBC 1.74 L* (3.98-10.04) K/mm3 RBC 2.64 L (3.98-5.22) M/mm3 Hgb 7.5 L D (11.2-15.7) gm/dl Hct 24.8 L (34.1-44.9) % MCV 93.9 (79.4-94.8) fl MCH 28.4 (25.6-32.2) pg MCHC 30.2 L (32.2-35.5) g/dl RDW Std Deviation 61.0 H (36.4-46.3) fL Plt Count 68 L D (182-369) K/mm3 MPV 11.9 (9.4-12.3) fl Neut % (Auto) 59.2 (34.0-71.1) % Lymph % (Auto) 23.0 (19.3-51.7) % [place] % (Auto) 9.2 (4.7-12.5) % Eos % (Auto) 6.9 H (0.7-5.8) Baso % (Auto) 1.1 (0.1-1.2) % Neut # (Auto) 1.03 L (1.56-6.13) K/mm3 Lymph # (Auto) 0.40 L (1.18-3.74) K/mm3 [place] # (Auto) 0.16 L (0.24-0.36) K/mm3 Eos # (Auto) 0.12 (0.04-0.36) K/mm3 Baso # (Auto) 0.02 (0.01-0.08) K/mm3 Manual Slide Review Abnormal smear Sodium 134 L (136-145) mEq/L Potassium 6.3 H* D (3.5-5.1) mEq/L Chloride 102 (98-107) mEq/L Carbon Dioxide 18 L D (21-32) mEq/L Anion Gap 20.3 H (5-15) BUN 47 H D (7-18) mg/dL Creatinine 5.2 H D (0.55-1.02) mg/dL Est Cr Clr Drug Dosing 8.47 mL/min Estimated GFR (MDRD) 8 (>60) mL/min BUN/Creatinine Ratio 9.0 L (14-18) Glucose 77 (74-106) mg/dL POC Glucose 63 L (70-105) mg/dL Calcium 8.1 L (8.5-10.1) mg/dL Total Bilirubin 0.4 (0.2-1.0) mg/dL AST 53 H (15-37) U/L ALT 50 (14-59) U/L Alkaline Phosphatase 192 H (46-116) U/L Total Protein 7.6 (6.4-8.2) g/dl Albumin 2.2 L (3.4-5.0) g/dl Globulin 5.4 gm/dL Albumin/Globulin Ratio 0.4 L (1-2) SARS-CoV-2 RNA (MIGUEL) (NEGATIVE) 11/18/19 11/18/19 11/18/19 Range/Units 20:33 21:25 22:55 WBC (3.98-10.04) K/mm3 RBC (3.98-5.22) M/mm3 Hgb (11.2-15.7) gm/dl Hct (34.1-44.9) % MCV (79.4-94.8) fl MCH (25.6-32.2) pg MCHC (32.2-35.5) g/dl RDW Std Deviation (36.4-46.3) fL Plt Count (182-369) K/mm3 MPV (9.4-12.3) fl Neut % (Auto) (34.0-71.1) % Lymph % (Auto) (19.3-51.7) % [place] % (Auto) (4.7-12.5) % Eos % (Auto) (0.7-5.8) Baso % (Auto) (0.1-1.2) % Neut # (Auto) (1.56-6.13) K/mm3 Lymph # (Auto) (1.18-3.74) K/mm3 [place] # (Auto) (0.24-0.36) K/mm3 Eos # (Auto) (0.04-0.36) K/mm3 Baso # (Auto) (0.01-0.08) K/mm3 Manual Slide Review Sodium (136-145) mEq/L Potassium (3.5-5.1) mEq/L Chloride (98-107) mEq/L Carbon Dioxide (21-32) mEq/L Anion Gap (5-15) BUN (7-18) mg/dL Creatinine (0.55-1.02) mg/dL Est Cr Clr Drug Dosing mL/min Estimated GFR (MDRD) (>60) mL/min BUN/Creatinine Ratio (14-18) Glucose (74-106) mg/dL POC Glucose 68 L 65 L (70-105) mg/dL Calcium (8.5-10.1) mg/dL Total Bilirubin (0.2-1.0) mg/dL AST (15-37) U/L ALT (14-59) U/L Alkaline Phosphatase (46-116) U/L Total Protein (6.4-8.2) g/dl Albumin (3.4-5.0) g/dl Globulin gm/dL Albumin/Globulin Ratio (1-2) SARS-CoV-2 RNA (MIGUEL) Negative (NEGATIVE) Meds: Medications Discontinued Medications Generic Name Dose Route Start Last Admin Trade Name Yehudaq PRN Reason Stop Dose Admin Dextrose/Water 50 ml 11/18/19 18:36 11/18/19 19:59 Dextrose 50% In Water IVPUSH 11/18/19 18:37 50 ml ONETIME ONE Administration Dextrose/Water 50 ml 11/18/19 21:15 11/18/19 22:36 Dextrose 50% In Water IVPUSH 11/18/19 21:16 Not Given ONETIME ONE Dextrose/Water Confirm 11/18/19 21:15 11/18/19 21:20 Dextrose 50% In Water Administered 11/18/19 21:16 50 ml Dose Administration 50 ml .ROUTE .STK-MED ONE Dextrose/Water 50 ml 11/18/19 23:00 11/18/19 23:00 Dextrose 50% In Water IVPUSH 11/18/19 23:01 50 ml ASDIRECTED STA Administration Promethazine HCl 12.5 mg/ 50.5 mls @ 100 mls/hr 11/18/19 20:13 11/18/19 20:19 Sodium Chloride IV 11/18/19 20:43 Not Given ONETIME ONE Sodium Chloride 1,000 mls @ 100 mls/hr 11/18/19 20:45 11/18/19 22:27 Normal Saline IV 100 mls/hr ASDIRECTED ROQUE Administration Dextrose/Water 500 mls @ 50 mls/hr 11/18/19 21:30 Dextrose 10% In Water IV ASDIRECTED ROQUE Dextrose/Water 1,000 mls @ 50 mls/hr 11/18/19 22:30 11/18/19 22:37 Dextrose 10% In Water IV 50 mls/hr ASDIRECTED ROQUE Administration Dextrose/Water Confirm 11/18/19 22:32 11/18/19 22:44 Dextrose 10% In Water Administered 11/18/19 22:33 Not Given Dose 1,000 mls @ as directed .ROUTE .STK-MED ONE Insulin Human Regular 10 unit 11/18/19 18:36 11/18/19 19:58 Humulin R IV 11/18/19 18:37 10 unit ONETIME ONE Administration Morphine Sulfate 1 mg 11/18/19 20:15 11/18/19 20:26 Morphine IVPUSH 11/18/19 20:16 1 mg ONETIME ONE Administration Promethazine HCl 12.5 mg 11/18/19 20:17 11/18/19 20:25 Phenergan IM 11/18/19 20:18 12.5 mg ONETIME ONE Administration Sodium Polystyrene Sulfonate 30 gm 11/18/19 21:02 11/18/19 23:02 Kayexalate PO 11/18/19 21:03 30 gm ONETIME ONE Administration - Re-Assessments/Exams Free Text/Narrative Re-Assessment/Exam: 11/18/19 23:03 sugar is currently 65 and has dropped once again. She will be given another full amp of D50 IV. Ambulance is here to provide transport at this time.
[2019-11-18] MEDS ORDERED: Insulin Regular, Human 100 Units/ML 3 ML Vial IV ONE (18:36)
[2019-11-18] MEDS ORDERED: 50% Dextrose in Water 50 ML Syringe IVPUSH ONE ×2 (18:36→21:15)
[2019-11-18] MEDS ORDERED: Promethazine 12.5 MG in Sodium Chloride 0.9% 50 ML IV ONE (20:13)
[2019-11-18] MEDS ORDERED: Morphine 2 MG/ML SYRINGE IVPUSH ONE (20:15)
[2019-11-18] MEDS ORDERED: Promethazine 25 MG/ML SDV IM ONE (20:17)
[2019-11-18] MEDS ORDERED: Sodium Chloride 0.9% 1,000 ML IV SCH (20:45)
[2019-11-18] MEDS ORDERED: Sodium Polystyrene Sulfonate 15 GM/60 ML Susp 60 ML Bot PO ONE (21:02)
[2019-11-18] MEDS ORDERED: 50% Dextrose in Water 50 ML Syringe ONE (21:15)
[2019-11-18] MEDS ORDERED: Dextrose 10% in Water 500 ML IV SCH (21:30)
[2019-11-18] MEDS ORDERED: Dextrose 10% in Water 1,000 ML IV SCH (22:30)
[2019-11-18] MEDS ORDERED: Dextrose 10% in Water 1,000 ML ONE (22:32)
[2019-11-18] MEDS ORDERED: 50% Dextrose in Water 50 ML Syringe IVPUSH STA (23:00)
== END 2019-11-18 23:30 ==
LOC: JD.ED 16:21
DX: N17.9 Acute kidney failure, unspecified (principal); E87.5 Hyperkalemia; C90.00 Multiple myeloma not having achieved remission; E78.00 Pure hypercholesterolemia, unspecified; I50.9 Heart failure, unspecified; J45.909 Unspecified asthma, uncomplicated; E66.9 Obesity, unspecified; Z68.43 Body mass index [BMI] 50.0-59.9, adult; Z88.2 Allergy status to sulfonamides; Z88.1 Allergy status to other antibiotic agents; Z79.899 Other long term (current) drug therapy; Z79.82 Long term (current) use of aspirin
CPT/HCPCS: 36415; 80053; 82962; 85025; 87635; 93005; 96361; 96372; 96374; 96375; 96376; 99285; A9270; J1815; J2270; J2550; J7030; U0002